=== PATIENT | female | born 1950 | race Caucasian/White ===

== ENCOUNTER → 2021-08-12 11:08 | Outpatient (BNVA) | payer MEDICARE, BC, SELFPAY | PROVIDERS: PCP Family Medicine; Visit Provider Internal Medicine Cardiovascular Disease | DX: I25.10 Atherosclerotic heart disease of native coronary artery without angina pectoris (principal); R94.31 Abnormal electrocardiogram [ECG] [EKG]; Z98.61 Coronary angioplasty status | CPT/HCPCS: 93005; 99212 ==

== ENCOUNTER → 2021-09-08 13:53 | Outpatient (BNVA) | payer MEDICARE, SELFPAY ==
[2021-08-28 13:57] VITALS: BP 118/72; BP 136/80; BMI 45.5
== END ==
PROVIDERS: PCP Family Medicine; Visit Provider Nurse Practitioner Family
DX: I25.10 Atherosclerotic heart disease of native coronary artery without angina pectoris (principal); R94.31 Abnormal electrocardiogram [ECG] [EKG]; R07.89 Other chest pain; I25.2 Old myocardial infarction; Z98.890 Other specified postprocedural states
CPT/HCPCS: 93005; 99212; Q3014

== ENCOUNTER → 2021-11-18 09:38 | Outpatient (BNVA) | payer MEDICARE, SELFPAY ==
[2021-08-28 13:57] VITALS: BP 118/72; BP 136/80
[2021-11-16 08:17] VITALS: BP 122/6; BMI 45.8
== END ==
PROVIDERS: PCP Family Medicine; Visit Provider Hospitalist
DX: R06.00 Dyspnea, unspecified (principal); G47.33 Obstructive sleep apnea (adult) (pediatric); I25.10 Atherosclerotic heart disease of native coronary artery without angina pectoris; R60.0 Localized edema
CPT/HCPCS: 99202

== ENCOUNTER → 2021-11-23 09:19 | Outpatient (BNVA) | payer MEDICARE, SELFPAY ==
[2021-08-28 13:57] VITALS: BP 118/72; BP 136/80
[2021-11-16 08:17] VITALS: BP 122/6; BMI 45.8
== END ==
PROVIDERS: PCP Family Medicine; Visit Provider Internal Medicine Cardiovascular Disease
DX: I25.10 Atherosclerotic heart disease of native coronary artery without angina pectoris (principal); R06.00 Dyspnea, unspecified; Z98.61 Coronary angioplasty status
CPT/HCPCS: 93005; 99212

== ENCOUNTER → 2021-12-03 10:48 | Outpatient (REF) | payer MEDICARE, SELFPAY ==
[2021-08-28 13:57] VITALS: BP 118/72; BP 136/80
[2021-11-16 08:17] VITALS: BP 122/6; BMI 45.8
== END ==
LOC: HO.SL 10:48
PROVIDERS: PCP Physician Assistant; Visit Provider Hospitalist
DX: G47.33 Obstructive sleep apnea (adult) (pediatric) (principal); R06.83 Snoring; R40.0 Somnolence
CPT/HCPCS: 95806

== ENCOUNTER → 2022-01-13 08:26 | Outpatient (BNVA) | payer MEDICARE, SELFPAY ==
[2021-08-28 13:57] VITALS: BP 118/72; BP 136/80
[2021-11-16 08:17] VITALS: BMI 45.8
[2021-12-31 11:11] VITALS: BP 118/64
== END ==
PROVIDERS: PCP Physician Assistant; Visit Provider Hospitalist
DX: J44.9 Chronic obstructive pulmonary disease, unspecified (principal); R06.02 Shortness of breath; G47.33 Obstructive sleep apnea (adult) (pediatric); R60.0 Localized edema; I25.10 Atherosclerotic heart disease of native coronary artery without angina pectoris; Z87.891 Personal history of nicotine dependence; Z98.890 Other specified postprocedural states
CPT/HCPCS: 99212

== ENCOUNTER → 2022-02-11 08:25 | Outpatient (BNVA) | payer MEDICARE, SELFPAY ==
[2021-11-16 08:17] VITALS: BMI 45.8
[2022-02-11 08:58] VITALS: BP 124/68; BP 126/62
== END ==
PROVIDERS: PCP Physician Assistant; Visit Provider Internal Medicine Endocrinology, Diabetes & Metabolism
DX: E03.9 Hypothyroidism, unspecified (principal); Z79.899 Other long term (current) drug therapy
CPT/HCPCS: 36415; 84439; 84443; 99202

== ENCOUNTER 2022-02-11 09:11 | Outpatient (REF) | payer MEDICARE, SELFPAY ==
[2021-11-16 08:17] VITALS: BMI 45.8
[2022-02-11 08:58] VITALS: BP 124/68; BP 126/62
[2022-02-11 11:21] LABS: Thyroid Stimulating Hormone 1.11 uIU/mL (0.32-4.0)
[2022-02-11 13:05] LABS: Free T4 (Free Thyroxine) 1.26 ng/dL (0.71-1.85)
== END 2022-02-11 09:12 | disposition home or self-care (01) ==
LOC: HO.10HDL 09:11
PROVIDERS: Visit Provider Internal Medicine Endocrinology, Diabetes & Metabolism
DX: Z13.89 Encounter for screening for other disorder (principal)
CPT/HCPCS: 36415; 84439; 84443

== ENCOUNTER → 2022-03-25 08:47 | Outpatient (BNVA) | payer MEDICARE, SELFPAY ==
[2021-11-16 08:17] VITALS: BMI 45.8
== END ==
PROVIDERS: PCP Physician Assistant; Visit Provider Internal Medicine Cardiovascular Disease
DX: E66.01 Morbid (severe) obesity due to excess calories (principal); I20.8 Other forms of angina pectoris; Z98.61 Coronary angioplasty status; Z68.42 Body mass index [BMI] 45.0-49.9, adult
CPT/HCPCS: 99212

== ENCOUNTER 2022-05-11 07:47 | Outpatient (REF) | payer MEDICARE, SELFPAY ==
[2021-11-16 08:17] VITALS: BMI 45.8
--- NOTE | 2022-05-11 18:12 | PFT_ITS ---
INDICATION: Shortness of breath. SPIROMETRY: FEV1 to FVC of 73% post bronchodilator, and 68% pre bronchodilator with an FEV1 of 1.73 L, which is 71% predicted and FVC of 2.36 L which is 73% predicted. The patient does have significant small airway disease with a FEF 25/75 of 52% predicted pre bronchodilators. Post bronchodilators, the patient did have . The maximum voluntary ventilation is 81% predicted. LUNG VOLUMES: Total lung capacity 86% predicted. DIFFUSION CAPACITY: DLCO 50% predicted. COMPARISON: None. INTERPRETATION: There appears to be a reversible obstructive ventilatory defect suspicious for diagnosis of asthma. The patient does have evidence of small airway disease which is consistent with diagnosis of asthma. The maximum voluntary ventilation is low normal. The patient's total lung capacity is within normal limits, although the patient does have a moderate diffusion impairment. Therefore, pulmonary vascular congestion and/or parenchymal lung condition should be considered. Should also correct for hemoglobin. Clinical correlation warranted. MD TANK Babb/GIL / [id number]
== END 2022-05-11 07:48 | disposition home or self-care (01) ==
LOC: HO.RESP 07:47
PROVIDERS: PCP Family Medicine; Visit Provider Hospitalist
DX: J44.9 Chronic obstructive pulmonary disease, unspecified (principal)
CPT/HCPCS: 94060; 94727; 94729

== ENCOUNTER → 2022-05-19 08:26 | Outpatient (BNVA) | payer MEDICARE, SELFPAY ==
[2021-11-16 08:17] VITALS: BMI 45.8
== END ==
PROVIDERS: PCP Family Medicine; Visit Provider Hospitalist
DX: J44.9 Chronic obstructive pulmonary disease, unspecified (principal); J98.6 Disorders of diaphragm; I21.3 ST elevation (STEMI) myocardial infarction of unspecified site; Z98.61 Coronary angioplasty status; Z98.890 Other specified postprocedural states
CPT/HCPCS: 99212

== ENCOUNTER → 2022-08-04 09:15 | Outpatient (BNVA) | payer MEDICARE, SELFPAY ==
[2021-11-16 08:17] VITALS: BMI 45.8
== END ==
PROVIDERS: PCP Family Medicine; Visit Provider Internal Medicine Cardiovascular Disease
DX: I25.118 Atherosclerotic heart disease of native coronary artery with other forms of angina pectoris (principal)
CPT/HCPCS: 93005; 99212

== ENCOUNTER → 2022-09-10 08:16 | Outpatient (BNVA) | payer MEDICARE, SELFPAY ==
[2021-11-16 08:17] VITALS: BMI 45.8
== END ==
PROVIDERS: PCP Family Medicine; Visit Provider Internal Medicine Endocrinology, Diabetes & Metabolism
DX: E03.9 Hypothyroidism, unspecified (principal)
CPT/HCPCS: 99212

== ENCOUNTER 2023-04-01 09:39 | Outpatient (REF) | payer MEDICARE, SELFPAY ==
[2021-11-16 08:17] VITALS: BMI 45.8
--- NOTE | ~2023-04-01 | MM_ITS ---
EXAMINATION: MM SCREENING DIGITAL BREAST TOMOSYNTHESIS, BILATERAL CLINICAL INFORMATION: Screening. Asymptomatic. COMPARISON: Mammography: There are no prior mammograms for comparison. TECHNIQUE: Digital breast tomosynthesis is performed in both the craniocaudal and mediolateral oblique views along with computer-aided detection (CAD). Synthesized 2D images are generated from the tomosynthesis. FINDINGS: The breasts are almost entirely fatty (ACR BI-RADS breast composition Category a). There are no significant masses, abnormal calcifications, or other abnormalities. MM/MM tomosynthesis screening BI IMPRESSION: No mammographic evidence of malignancy. ASSESSMENT: BI-RADS BI-RADS 1 - Negative RECOMMENDATION: Routine annual mammography screening. 1 year F/U This examination should not preclude the clinical evaluation of a suspicious palpable abnormality. This patient's information was entered into a reminder system with a target due date for their next mammogram.
== END 2023-04-01 09:40 | disposition home or self-care (01) ==
LOC: HO.MAMMO 09:39
PROVIDERS: PCP Family Medicine; Visit Provider Physician Assistant
DX: Z12.31 Encounter for screening mammogram for malignant neoplasm of breast (principal)
CPT/HCPCS: 77063; 77067

== ENCOUNTER → 2023-04-01 10:00 | Outpatient (BNV) | payer MEDICARE, SELFPAY ==
[2021-11-16 08:17] VITALS: BMI 45.8
== END ==
PROVIDERS: PCP Family Medicine; Visit Provider Radiology Diagnostic Radiology
DX: Z12.31 Encounter for screening mammogram for malignant neoplasm of breast (principal)
CPT/HCPCS: 77063; 77067

== ENCOUNTER 2023-05-18 09:31 | Outpatient (AMB) | payer MEDICARE, SELFPAY ==
[2021-11-16 08:17] VITALS: BMI 45.8
--- NOTE | 2023-05-18 09:43 | A.OFFVIS_ITS ---
Intake Vital Signs 05/18/23 09:44 Height 5 ft 6 in Weight 283 lb 1.176 oz BMI 45.7 BP 104/62 Blood Pressure Location Lt brachial Position Sitting Pulse 56 Pulse Source Pulse Oximeter Intake Visit Reasons: overdue for fu (rs) Intake Note: pt its here for and overdue f/up/ pt its doing fine. Durable Medical Equipment Repairer Required: No Accompanied by: Self / Same As Patient Allergies No Known Allergies Allergy (Verified 09/10/22 08:22) Medication List - Last Reconciled 05/18/23 by Otis Ramirez MD albuterol sulfate 90 mcg/actuation 2 inhalations inhalation Q6H PRN 30 days amitriptyline 25 mg PO DAILY aspirin 81 mg PO DAILY atenolol 25 mg PO DAILY 90 days atorvastatin 80 mg PO BEDTIME clopidogrel 75 mg PO DAILY fluoxetine 10 mg PO DAILY gabapentin 600 mg PO BID levothyroxine 175 mcg PO 6XW lisinopril 2.5 mg PO BEDTIME oxybutynin chloride ER 5 mg PO DAILY HPI HPI Comments History of Present Illness Details 73-year-old female who is here for [facility] w[facility]up. She has known history of coronary disease and presented with inferior wall NE when she underwent RCA PCI followed by staged PCI of left circumflex artery during the same hospitalization. Subsequent to that she was seen in the office and had anterior T-wave inversions and was taken back to cardiac laborer and had LAD PCI. Since then she has not had any further chest discomfort. She has fatigue and shortness of breath. Her symptoms did not improve with diuretics. She has morbid obesity we discussed previously about exercise and weight loss. She has a gym at home and is trying to exercise as much as she can. Compared to February she had lost 1 lb. She looked into weight loss program at [facility] but she was told that they do not have any nutritional program anymore and only surgical options are available here. She is saying that she gets fatigued easily. She is seeing pulmonology and has been diagnosed with mild COPD. 05/18/23: Today she returns for follow-up . She has been doing well. Denying any chest discomfort shortness of breath. She is saying she is trying to be more active and has no exertional issues. No bleeding concerns. Taking medications regularly. [facility] Medical History (Updated 05/19/22 @ 21:11 by Ayad Carlton MD) History of ST elevation myocardial infarction (STEMI) Hypothyroid COPD (chronic obstructive pulmonary disease) Lower extremity edema Surgical History History of cholecystectomy History of right knee surgery History of cardiac catheterization Family History Father Hypertension Mother No problems noted. Maternal Grandmother Pacemaker Paternal Grandmother Myocardial infarction Social History Household Members: Spouse Household Members Other:: Dipak, Alcohol intake: never Patient Tobacco Use Status: Former Tobacco user Quit Date: 40 yrs ago Review of Systems Const Denies chills, Denies fatigue, Denies fever(s), Denies frequent falls, Denies weakness, Denies weight gain and Denies weight loss ENT Denies dizziness Card Denies chest pain, Denies leg edema, Denies lightheadedness, Denies palpitations, Denies dyspnea and Denies dyspnea on exertion Resp Denies cough, Denies dyspnea and Denies dyspnea on exertion GI Denies hematochezia Musc Denies abnormal gait, Denies muscle weakness, Denies numbness, Denies radiating pain into limb and Denies tingling Neuro Denies abnormal gait, Denies dizziness, Denies frequent falls, Denies numbness, Denies tingling and Denies weakness Endo Denies fatigue and Denies palpitations Physical Exam Vital Signs: Last Vital Signs Pulse 56 05/18/23 09:44 BP 104/62 05/18/23 09:44 BMI result Body Mass Index 45.7 GENERAL APPEARANCE: in no acute distress, pleasant. NECK: no carotid bruit, no jugular venous distention. SKIN: no suspicious lesions, warm and dry. HEART: no murmurs, regular rate and rhythm. LUNGS: clear to auscultation bilaterally. ABDOMEN: soft, nontender. EXTREMITIES: no edema. PERIPHERAL PULSES: equal. NEUROLOGIC: No gross deficits, AAO X 3 Assessment & Plan Assessment & Plan (1) CAD (coronary artery disease): Comment: (s/p RAFAEL to RCA, LCx and LAD in 2021) Code(s): I25.10 - Atherosclerotic heart disease of [place] coronary artery without angina pectoris (2) Stable angina: Code(s): I20.8 - Other forms of angina pectoris Plan [age] female with known history of coronary disease with multivessel PCI who has stable angina currently. Doing well on the current medications. Blood pressure well controlled. She is asking about duration of her cardiovascular medications. She is on atenolol and lisinopril for blood pressure control. She is on aspirin, Plavix and atorvastatin. I have advised her that these are long-term medications for her. Given multivessel disease I would favor leaving her on aspirin and Plavix . If there is any concern for bruising or bleeding then aspirin can be stopped and she can stay on Plavix monotherapy. Currently she has decided to take both aspirin and Plavix. Thank you for allowing me to participate in the care of your patient. Please feel free to contact me if you have any questions. Coding Level of Care Code Est Pt Level 4 (30194) Diagnoses CAD (coronary artery disease) I25.10 Stable angina I20.8
[2023-05-18 09:44] VITALS: BP 104/62; PULSE 56; BMI 45.7
== END 2023-05-18 10:13 | disposition home or self-care (01) ==
PROVIDERS: PCP Family Medicine; Visit Provider Internal Medicine Cardiovascular Disease
DX: I25.118 Atherosclerotic heart disease of native coronary artery with other forms of angina pectoris (principal)
CPT/HCPCS: 99214

== ENCOUNTER → 2023-05-18 09:31 | Outpatient (BNVA) | payer MEDICARE, SELFPAY ==
[2021-11-16 08:17] VITALS: BMI 45.8
== END ==
PROVIDERS: PCP Family Medicine; Visit Provider Internal Medicine Cardiovascular Disease
DX: I25.119 Atherosclerotic heart disease of native coronary artery with unspecified angina pectoris (principal)
CPT/HCPCS: 99212

== ENCOUNTER 2023-07-12 08:20 | Outpatient (AMB) | payer MEDICARE, SELFPAY ==
[2021-11-16 08:17] VITALS: BMI 45.8
[2023-07-12 08:25] VITALS: PULSE 71; O2SAT 96; BMI 45.5
--- NOTE | 2023-07-12 08:25 | MHC.OFFVIS ---
Vital Signs 07/12/23 08:25 Height 5 ft 6 in Weight 282 lb BMI 45.5 Pulse 71 Pulse Source Pulse Oximeter Pulse Oximetry (%) 96 Oxygen Delivery Method Room Air Intake Visit Reasons: Shortness of breath Laboratory Monitor Required: No Allergies No Known Allergies Allergy (Verified 07/12/23 08:26) HPI Comments Details: The patient is [id number] female with known history of CAD, STEMI at [facility] in July 2021 when she presented with inferior ST-elevation FL. she was taken for cardiac catheterization emergently s/p PCI. the patient is presenting with progressive dyspnea on exertion. During the hospitalization her bring x-ray peptide was indeed elevated and her echocardiogram demonstrated an EF slightly decreased at 45 to 50%. The patient was placed on cardioprotective medications and was discharged. Currently she is performing cardiac rehab. However she has not seen any significant improvement of her respiratory capacity. Therefore she did go for a pulmonary evaluation. 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 Denies any significant issues while exposed to the flour. She was evaluated at [facility] when she did undergo pulmonary function studies. She was told she had obstructive lung disease and was provided inhaler. Although the inhaler cause significant coughing. Therefore she stopped it. She did not see any benefit. Denies any other exposures. The patient is having daytime drowsiness. Her Burton score is elevated 12/24. She is obese. Patient also has significant lower extremity edema. She has never had a sleep study. At this time with cardiovascular risk factors and her ongoing daytime drowsiness she needs to have a sleep study done. I will request a home sleep study at this time. In the meantime diuresis may be affected specially with her elevated brain atretic peptide. On examination she does not have any significant wheezing or any evidence of any prolonged expiratory phase which is reassuring. During a brief walking oximetry the patient did demonstrate increasing dyspnea when heart rate increased above 100. Pulse ox was stable throughout the ambulation. 01/13/2022 the patient is here for a pulmonary follow-up visit. Overall she continues to be about the same. Complains of the dyspnea on exertion moderate severity. She has been on the cardioprotective medications and also been working on weight loss. She has not been dramatic improvement respiratory issues. She tried multiple inhalers in the past however they resulted in adverse symptoms. She did also have issues with snoring and also daytime drowsiness. She did have a sleep study demonstrating she does not have any significant evidence of sleep apnea. However, with her snoring she can always consider a mandibular device to minimize snoring. The patient also had pulmonary function studies relatively recent at [facility]. I do not have them initially but I did get access to them. It appears that she does have mild degree of COPD. therefore, will refer her to pulmonary rehabilitation in order for her to strengthen and buildup her respiratory capacity. 05/19/2022 the patient is here for a pulmonary follow-up visit. Since we last spoke she has been doing fairly well. She did follow-up with cardiology and she was reassured with her results. She understands that she needs to lose weight because this is causing her to have worsening respiratory symptoms. She has already lost 9 lb and she is very courage. In addition to that she did not picking tech the Symbicort because it was too expensive. Therefore she does not have any inhalers at this time. We did review her pulmonary function studies that she had recently. 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 The patient will benefit from being on nebulizers that she has a great response to bronchodilators noted. We also reviewed her diffusing capacity which is moderately decreased. Her last chest x-ray was at [facility] where demonstrated elevations of the right hemidiaphragm. Therefore, will have her repeat the chest x-ray at some point. She can have it done whenever able. Will follow-up in a year's time. If a patient has any difficulties she is to call the office for an earlier assessment. 07/12/2023 the patient is here for a pulmonary follow-up visit. Overall the patient is doing okay. She has been having worsening dyspnea on exertion. He has been noticing that she is using her rescue inhaler a couple times a day. The patient wondering about using a maintenance inhaler. I had send her Symbicort the hospitalist too expensive. Will go ahead and try some Advair this time. It is too expensive will try to find a reasonable alternative including AirDuo with GoodRx card. The patient has been sleeping elevated has been helping her cough. In addition to the we did talk about pulmonary rehabilitation. She has not interested in doing in person right now. She is going to start working outside in again I gave her the online web site for pulmonary wellness in order for her to start looking at their videos information. The patient has not had chest x-ray recently. She does have an elevated hemidiaphragms we want to make sure follow-up with that. She can have that done prior to the next visit. If patient develops any worsening symptoms she will call for an earlier assessment otherwise follow-up in 6-8 months. [facility] Medical History (Updated 07/12/23 @ 08:29 by Ayad Carlton MD) History of ST elevation myocardial infarction (STEMI) Hypothyroid COPD (chronic obstructive pulmonary disease) Lower extremity edema Surgical History History of cholecystectomy History of right knee surgery History of cardiac catheterization Family History Father Hypertension Mother No problems noted. Maternal Grandmother Pacemaker Paternal Grandmother Myocardial infarction Social History Household Members: Spouse Household Members Other:: Dipak, Alcohol intake: never Patient Tobacco Use Status: Former Tobacco user Quit Date: 40 yrs ago Review of Systems Const Reports daytime sleepiness, Reports snoring, Denies weakness and Reports weight gain Eyes Denies change in vision ENT Denies dizziness Card Denies chest pain, Denies chest pain with activity, Denies syncope, Denies rapid heart rate, Denies pedal edema, Denies edema, Denies leg edema, Denies lightheadedness, Denies palpitations, Denies dyspnea, Reports dyspnea on exertion and Denies orthopnea Resp Denies cough, Denies dyspnea, Reports dyspnea on exertion and Reports snoring GI Denies hematochezia and Denies change in stool character Musc Denies abnormal gait, Denies muscle weakness, Denies numbness, Denies radiating pain into limb and Denies tingling Neuro Denies abnormal gait, Denies dizziness, Denies syncope, Denies numbness, Denies tingling and Denies weakness Endo Denies palpitations Physical Exam Vital Signs: Last Vital Signs Pulse 71 07/12/23 08:25 Pulse Ox 96 07/12/23 08:25 Oxygen Delivery Method Room Air 07/12/23 08:25 BMI result Body Mass Index 45.5 Const General: cooperative, comfortable and no acute distress Orientation/consciousness: patient oriented x3 Neck Neck: Yes normal visual inspection Chest Chest palpation & inspection: normal inspection of the chest Resp Effort & Inspection: normal respiratory effort Auscultation: no crackles, no rales, no rhonchi, no wheezes and diminished lung sounds Cardio Rate: regular rate Rhythm: regular rhythm Heart sounds: S1 normal heart sound present, S2 normal heart sound present, no gallops, no murmurs and no rubs GI Inspection: Yes normal to inspection Neuro General: patient oriented x3 Extrem Other: Right radial catheterization site with easily palpable right radial pulse and hand assessment normal General: No calf tenderness, No clubbing, No cyanosis and Yes edema Psych Appearance: grossly normal Mental Status: mental status grossly normal Speech and movement: Normal speech and movement present Assessment & Plan Assessment & Plan (1) Dyspnea: Code(s): R06.00 - Dyspnea, unspecified Category: Medical Qualifiers: Dyspnea type: dyspnea on exertion Qualified Code(s): R06.09 - Other forms of dyspnea (2) CAD (coronary artery disease): Comment: (s/p RAFAEL to RCA, LCx and LAD in 2021) Code(s): I25.10 - Atherosclerotic heart disease of [place] coronary artery without angina pectoris Category: Medical (3) COPD (chronic obstructive pulmonary disease): Comment: Partially reversible obstruction, asthma-copd overlap syndrome Code(s): J44.9 - Chronic obstructive pulmonary disease, unspecified Category: Medical Qualifiers: COPD type: unspecified COPD Qualified Code(s): J44.9 - Chronic obstructive pulmonary disease, unspecified (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 Consider in person low sodium diet weight management CXR F/U 6-8 months Orders: Orders XR chest 2V Today J44.9 - Chronic obstructive pulmonary disease, unspecified Pneumococcal 20 Immunization Today Z23 - Encounter for immunization Medications: New fluticasone propion-salmeterol 115-21 mcg/actuation (Advair HFA) 2 puffs inhalation Q12H 12 grams 11RF 30 days Coding Level of Care Code Est Pt Level 4 (23780) Diagnoses Dyspnea on exertion R06.09 Dyspnea type: dyspnea on exertion CAD (coronary artery disease) I25.10 Chronic obstructive pulmonary disease, unspecified COPD type J44.9 COPD type: unspecified COPD Elevated diaphragm J98.6 Time Spent (min) 17
== END 2023-07-12 08:46 | disposition home or self-care (01) ==
PROVIDERS: PCP Family Medicine; Visit Provider Hospitalist
DX: R06.09 Other forms of dyspnea (principal); I25.10 Atherosclerotic heart disease of native coronary artery without angina pectoris; J44.9 Chronic obstructive pulmonary disease, unspecified; J98.6 Disorders of diaphragm; Z23 Encounter for immunization
CPT/HCPCS: 99214

== ENCOUNTER → 2023-07-12 08:20 | Outpatient (BNVA) | payer MEDICARE, SELFPAY ==
[2021-11-16 08:17] VITALS: BMI 45.8
== END ==
PROVIDERS: PCP Family Medicine; Visit Provider Hospitalist
DX: R06.09 Other forms of dyspnea (principal); J44.9 Chronic obstructive pulmonary disease, unspecified; J98.6 Disorders of diaphragm; I25.10 Atherosclerotic heart disease of native coronary artery without angina pectoris; Z23 Encounter for immunization
CPT/HCPCS: 90471; 90677; 99212

== ENCOUNTER 2023-11-21 09:41 | Outpatient (AMB) | payer MEDICARE, SELFPAY ==
[2021-11-16 08:17] VITALS: BMI 45.8
[2023-11-21 09:45] VITALS: BP 120/62; PULSE 67; BMI 44.3
--- NOTE | 2023-11-21 09:45 | A.OFFVIS_ITS ---
Vital Signs 11/21/23 09:45 Height 5 ft 6 in Weight 274 lb 11.135 oz BMI 44.3 BP 120/62 Blood Pressure Location Lt brachial Position Sitting Pulse 67 Pulse Source Monitor Intake Visit Reasons: 6 mth f/up Intake Note: 6 mth f/up Clinic Mgr Required: No Accompanied by: Self / Same As Patient Allergies No Known Allergies Allergy (Verified 07/12/23 08:26) Medication List - Last Reconciled 11/21/23 by Otis Ramirez MD albuterol sulfate 90 mcg/actuation 2 inhalations inhalation Q6H PRN 30 days amitriptyline 25 mg PO DAILY aspirin 81 mg PO DAILY atenolol 25 mg PO DAILY 90 days atorvastatin 80 mg PO BEDTIME clopidogrel 75 mg PO DAILY fluoxetine 10 mg PO DAILY fluticasone propion-salmeterol 115-21 mcg/actuation (Advair HFA) 2 puffs inhalation Q12H 30 days gabapentin 600 mg PO BID levothyroxine 175 mcg PO 6XW lisinopril 2.5 mg PO BEDTIME oxybutynin chloride ER 5 mg PO DAILY HPI Comments Details: 73-year-old female who is here for follow-up. She has known history of coronary disease and presented with inferior wall SC when she underwent RCA PCI followed by staged PCI of left circumflex artery during the same hospitalization. Subsequent to that she was seen in the office and had anterior T-wave inversions and was taken back to cardiac bean sprout laborer and had LAD PCI. Since then she has not had any further chest discomfort. She has fatigue and shortness of breath. Her symptoms did not improve with diuretics. She has morbid obesity we discussed previously about exercise and weight loss. She has a gym at home and is trying to exercise as much as she can. Compared to February she had lost 1 lb. She looked into weight loss program at [facility] but she was told that they do not have any nutritional program anymore and only surgical options are available here. She is saying that she gets fatigued easily. She is seeing pulmonology and has been diagnosed with mild COPD. 05/18/23: Today she returns for follow-up. She has been doing well. Denying any chest discomfort shortness of breath. She is saying she is trying to be more active and has no exertional issues. No bleeding concerns. Taking medications regularly. 11/21/2023: She is here for follow-up. No chest discomfort shortness of breath. Taking medications regularly. She had episode of rectal bleeding and had colonoscopy performed which did not show any significant issues. She was told maybe bleeding was due to hemorrhoids. She is on aspirin and Plavix due to multiple stents done in 2021. [facility] Medical History (Updated 07/12/23 @ 08:29 by Ayad Carlton MD) History of ST elevation myocardial infarction (STEMI) Hypothyroid COPD (chronic obstructive pulmonary disease) Lower extremity edema Surgical History History of cholecystectomy History of right knee surgery History of cardiac catheterization Family History Father Hypertension Mother No problems noted. Maternal Grandmother Pacemaker Paternal Grandmother Myocardial infarction Social History Household Members: Spouse Household Members Other:: Dipak, Alcohol intake: never Patient Tobacco Use Status: Former Tobacco user Review of Systems Const Denies chills, Denies fatigue, Denies fever(s), Denies frequent falls, Denies weakness, Denies weight gain and Denies weight loss ENT Denies dizziness Card Denies chest pain, Denies leg edema, Denies lightheadedness, Denies palpitations, Denies dyspnea and Denies dyspnea on exertion Resp Denies cough, Denies dyspnea and Denies dyspnea on exertion GI Denies hematochezia Musc Denies abnormal gait, Denies muscle weakness, Denies numbness, Denies radiating pain into limb and Denies tingling Neuro Denies abnormal gait, Denies dizziness, Denies frequent falls, Denies numbness, Denies tingling and Denies weakness Endo Denies fatigue and Denies palpitations Physical Exam Vital Signs: Last Vital Signs Pulse 67 11/21/23 09:45 BP 120/62 11/21/23 09:45 BMI result Body Mass Index 44.3 GENERAL APPEARANCE: in no acute distress, pleasant. NECK: no carotid bruit, no jugular venous distention. SKIN: no suspicious lesions, warm and dry. HEART: no murmurs, regular rate and rhythm. LUNGS: clear to auscultation bilaterally. ABDOMEN: soft, nontender. EXTREMITIES: no edema. PERIPHERAL PULSES: equal. NEUROLOGIC: No gross deficits, AAO X 3 Office Procedures EKG Details: Sinus rhythm 67 beats per minute, normal axis, low voltage, QTC 424 milliseconds. [id number], Complete Assessment & Plan Assessment & Plan (1) Stable angina: Code(s): I20.8 - Other forms of angina pectoris Category: Medical (2) CAD (coronary artery disease): Comment: (s/p RAFAEL to RCA, LCx and LAD in 2021) Code(s): I25.10 - Atherosclerotic heart disease of [place] coronary artery without angina pectoris Category: Medical Plan Pleasant 73 year female here for follow-up. She has history of coronary disease with multivessel PCI in the past. She has stable angina currently and has been doing well. Blood pressure is well controlled. She had episode of rectal bleeding which was thought to be due to hemorrhoids. She is on dual antiplatelet therapy and PCI was in 2021. I have advised her to stop the aspirin and continue Plavix monotherapy from here onwards. She is on atorvastatin 80 mg. We will do fasting lipid panel on her and adjust medications if LDL cholesterol is more than 70. Same medications otherwise with the exception of aspirin. Thank you for allowing me to participate in the care of your patient. Please feel free to contact me if you have any questions. Orders: Orders Lipid Panel Today I25.10 - Atherosclerotic heart disease of [place] coronary artery without angina pectoris Medications: Discontinued aspirin Discontinued Reason: Doctor's Order 81 mg PO DAILY 90 tabs 3RF Coding Level of Care Code Est Pt Level 4 (84470) Diagnoses Stable angina I20.8 CAD (coronary artery disease) I25.10 CPT Codes EKG - CPT: 71299-[id number], Complete ([id number])
== END 2023-11-21 10:08 | disposition home or self-care (01) ==
PROVIDERS: PCP Family Medicine; Visit Provider Internal Medicine Cardiovascular Disease
DX: I25.118 Atherosclerotic heart disease of native coronary artery with other forms of angina pectoris (principal)
CPT/HCPCS: 93010; 99214

== ENCOUNTER → 2023-11-21 09:41 | Outpatient (BNVA) | payer MEDICARE, SELFPAY ==
[2021-11-16 08:17] VITALS: BMI 45.8
== END ==
PROVIDERS: PCP Family Medicine; Visit Provider Internal Medicine Cardiovascular Disease
DX: I25.118 Atherosclerotic heart disease of native coronary artery with other forms of angina pectoris (principal)
CPT/HCPCS: 93005; 99212

== ENCOUNTER 2024-01-16 08:17 | Outpatient (AMB) | payer MEDICARE, SELFPAY ==
[2021-11-16 08:17] VITALS: BMI 45.8
--- NOTE | 2024-01-16 08:20 | A.OFFVIS_ITS ---
Vital Signs 01/16/24 08:23 Height 5 ft 6 in Weight 264 lb 8.875 oz BMI 42.7 BP 124/80 Blood Pressure Location Rt brachial Position Sitting Pulse 69 Pulse Source Pulse Oximeter Pulse Oximetry (%) 100 Oxygen Delivery Method Room Air Intake Visit Reasons: Shortness of breath Certified Orthotist Required: No Drafter Tool Design: Drafter Tool Design offered & declined Accompanied by: Self / Same As Patient Allergies No Known Allergies Allergy (Verified 01/16/24 08:26) Medication List - Last Reconciled 01/16/24 by Arelis Gusman LPN albuterol sulfate 90 mcg/actuation 2 inhalations inhalation Q6H PRN 30 days amitriptyline 25 mg PO DAILY atenolol 25 mg PO DAILY 90 days atorvastatin 80 mg PO BEDTIME clopidogrel 75 mg PO DAILY fluoxetine 10 mg PO DAILY fluticasone propion-salmeterol 115-21 mcg/actuation (Advair HFA) 2 puffs inhalation Q12H 30 days gabapentin 600 mg PO BID levothyroxine 175 mcg PO 6XW lisinopril 2.5 mg PO BEDTIME oxybutynin chloride ER 5 mg PO DAILY HPI Comments Details: The patient is [id number] female with known history of CAD, STEMI at [facility] in July 2021 when she presented with inferior ST-elevation LA. she was taken for cardiac catheterization emergently s/p PCI. the patient is presenting with progressive dyspnea on exertion. During the hospitalization her bring x-ray peptide was indeed elevated and her echocardiogram demonstrated an EF slightly decreased at 45 to 50%. The patient was placed on cardioprotective medications and was discharged. Currently she is performing cardiac rehab. However she has not seen any significant improvement of her respiratory capacity. Therefore she did go for a pulmonary evaluation. 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 Denies any significant issues while exposed to the flour. She was evaluated at [facility] when she did undergo pulmonary function studies. She was told she had obstructive lung disease and was provided inhaler. Although the inhaler cause significant coughing. Therefore she stopped it. She did not see any benefit. Denies any other exposures. The patient is having daytime drowsiness. Her [place] score is elevated 02/27. She is obese. Patient also has significant lower extremity edema. She has never had a sleep study. At this time with cardiovascular risk factors and her ongoing daytime drowsiness she needs to have a sleep study done. I will request a home sleep study at this time. In the meantime diuresis may be affected specially with her elevated brain atretic peptide. On examination she does not have any significant wheezing or any evidence of any prolonged expiratory phase which is reassuring. During a brief walking oximetry the patient did demonstrate increasing dyspnea when heart rate increased above 100. Pulse ox was stable throughout the ambulation. 01/13/2022 the patient is here for a pulmonary follow-up visit. Overall she continues to be about the same. Complains of the dyspnea on exertion moderate severity. She has been on the cardioprotective medications and also been working on weight loss. She has not been dramatic improvement respiratory issues. She tried multiple inhalers in the past however they resulted in adverse symptoms. She did also have issues with snoring and also daytime drowsiness. She did have a sleep study demonstrating she does not have any significant evidence of sleep apnea. However, with her snoring she can always consider a mandibular device to minimize snoring. The patient also had pulmonary function studies relatively recent at [facility]. I do not have them initially but I did get access to them. It appears that she does have mild degree of COPD. therefore, will refer her to pulmonary rehabilitation in order for her to strengthen and buildup her respiratory capacity. 05/19/2022 the patient is here for a pulmonary follow-up visit. Since we last spoke she has been doing fairly well. She did follow-up with cardiology and she was reassured with her results. She understands that she needs to lose weight because this is causing her to have worsening respiratory symptoms. She has already lost 9 lb and she is very courage. 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 Therefore she does not have any inhalers at this time. We did review her pulmonary function studies that she had recently. 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 The patient will benefit from being on nebulizers that she has a great response to bronchodilators noted. We also reviewed her diffusing capacity which is moderately decreased. Her last chest x-ray was at [facility] where demonstrated elevations of the right hemidiaphragm. Therefore, will have her repeat the chest x-ray at some point. She can have it done whenever able. Will follow-up in a year's time. If a patient has any difficulties she is to call the office for an earlier assessment. 07/12/2023 the patient is here for a pulmonary follow-up visit. Overall the patient is doing okay. She has been having worsening dyspnea on exertion. He has been noticing that she is using her rescue inhaler a couple times a day. The patient wondering about using a maintenance inhaler. I had send her Symbicort the hospitalist too expensive. Will go ahead and try some Advair this time. It is too expensive will try to find a reasonable alternative including AirDuo with GoodRx card. The patient has been sleeping elevated has been helping her cough. In addition to the we did talk about pulmonary rehabilitation. She has not interested in doing in person right now. She is going to start working outside in again I gave her the online web site for pulmonary wellness in order for her to start looking at their videos information. The patient has not had chest x-ray recently. She does have an elevated hemidiaphragms we want to make sure follow-up with that. She can have that done prior to the next visit. If patient develops any worsening symptoms she will call for an earlier assessment otherwise follow-up in 6-8 months. 01/16/2024 the patient is here for a pulmonary follow-up visit. The patient overall has been doing very well. She has been using her rescue inhaler on a daily basis. She did not get the Advair HFA. She does use the rescue inhaler once or twice a day with good effect. She is staying active exercising. She is also using a wedge pillow at nighttime which is also helping with micro aspirations. She did not get a chest x-ray. We did again review her pulmonary function studies demonstrated the obstructive physiology. She does benefit from a beta effect. Therefore I will prescribe Anoro to the pharmacy. I am not sure how financially reasonable with the inhaler will be but hopefully she can at least try for a month and see this is helpful. The patient will have an x-ray whenever she can. She will follow-up in a year's time. If she has any issues prior to that she will call for an earlier assessment. [facility]LY [facility] Medical History (Updated 07/12/23 @ 08:29 by Ayad Carlton MD) History of ST elevation myocardial infarction (STEMI) Hypothyroid COPD (chronic obstructive pulmonary disease) Lower extremity edema Surgical History History of cholecystectomy History of right knee surgery History of cardiac catheterization Family History Father Hypertension Mother No problems noted. Maternal Grandmother Pacemaker Paternal Grandmother Myocardial infarction Social History Household Members: Spouse Household Members Other:: Dipak, Alcohol intake: never Patient Tobacco Use Status: Former Tobacco user Review of Systems Const Reports daytime sleepiness, Reports snoring, Denies weakness and Reports weight gain Eyes Denies change in vision ENT Denies dizziness Card Denies chest pain, Denies chest pain with activity, Denies syncope, Denies rapid heart rate, Denies pedal edema, Denies edema, Denies leg edema, Denies lightheadedness, Denies palpitations, Denies dyspnea, Reports dyspnea on exertion and Denies orthopnea Resp Denies cough, Denies dyspnea, Reports dyspnea on exertion and Reports snoring GI Denies hematochezia and Denies change in stool character Musc Denies abnormal gait, Denies muscle weakness, Denies numbness, Denies radiating pain into limb and Denies tingling Neuro Denies abnormal gait, Denies dizziness, Denies syncope, Denies numbness, Denies tingling and Denies weakness Endo Denies palpitations Physical Exam Vital Signs: Last Vital Signs Pulse 69 01/16/24 08:23 BP 124/80 01/16/24 08:23 Pulse Ox 100 01/16/24 08:23 Oxygen Delivery Method Room Air 01/16/24 08:23 BMI result Body Mass Index 42.7 Const General: cooperative, comfortable and no acute distress Orientation/consciousness: patient oriented x3 Neck Neck: Yes normal visual inspection Chest Chest palpation & inspection: normal inspection of the chest Resp Effort & Inspection: normal respiratory effort Auscultation: clear to auscultation bilaterally, no crackles, no rales, no rhonchi and no wheezes Cardio Rate: regular rate Rhythm: regular rhythm Heart sounds: S1 normal heart sound present, S2 normal heart sound present, no gallops, no murmurs and no rubs GI Inspection: Yes normal to inspection Neuro General: patient oriented x3 Extrem Other: Right radial catheterization site with easily palpable right radial pulse and hand assessment normal General: No calf tenderness, No clubbing, No cyanosis and Yes edema Psych Appearance: grossly normal Mental Status: mental status grossly normal Speech and movement: Normal speech and movement present Assessment & Plan Assessment & Plan (1) Dyspnea: Code(s): R06.00 - Dyspnea, unspecified Category: Medical Qualifiers: Dyspnea type: dyspnea on exertion Qualified Code(s): R06.09 - Other forms of dyspnea (2) COPD (chronic obstructive pulmonary disease): Comment: Partially reversible obstruction, asthma-copd overlap syndrome Code(s): J44.9 - Chronic obstructive pulmonary disease, unspecified Category: Medical Qualifiers: COPD type: unspecified COPD Qualified Code(s): J44.9 - Chronic obstructive pulmonary disease, unspecified (3) 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 Consider in person low sodium diet weight management CXR F/U 8-12 months Orders: Orders XR chest 2V Today J44.9 - Chronic obstructive pulmonary disease, unspecified Medications: New umeclidinium-vilanterol 62.5-25 mcg/actuation (Anoro Ellipta) 1 inh inhalation DAILY 60 ea 11RF J44.89 - Other specified chronic obstructive pulmonary disease Discontinued fluticasone propion-salmeterol 115-21 mcg/actuation (Advair HFA) Discontinued Reason: Doctor's Order 2 puffs inhalation Q12H 30 days 12 grams 11RF Coding Level of Care Code Est Pt Level 4 (57013) Diagnoses Dyspnea on exertion R06.09 Dyspnea type: dyspnea on exertion Chronic obstructive pulmonary disease, unspecified COPD type J44.9 COPD type: unspecified COPD Elevated diaphragm J98.6 Time Spent (min) 16
[2024-01-16 08:23] VITALS: BP 124/80; PULSE 69; O2SAT 100; BMI 42.7
== END 2024-01-16 08:42 | disposition home or self-care (01) ==
PROVIDERS: PCP Family Medicine; Visit Provider Hospitalist
DX: R06.09 Other forms of dyspnea (principal); J44.9 Chronic obstructive pulmonary disease, unspecified; J98.6 Disorders of diaphragm
CPT/HCPCS: 99214

== ENCOUNTER → 2024-01-16 08:17 | Outpatient (BNVA) | payer MEDICARE, SELFPAY ==
[2021-11-16 08:17] VITALS: BMI 45.8
== END ==
PROVIDERS: PCP Family Medicine; Visit Provider Hospitalist
DX: R06.09 Other forms of dyspnea (principal); J44.9 Chronic obstructive pulmonary disease, unspecified; J98.6 Disorders of diaphragm; R60.0 Localized edema
CPT/HCPCS: 99212

== ENCOUNTER 2024-04-06 09:29 | Outpatient (REF) | payer MEDICARE, SELFPAY ==
[2021-11-16 08:17] VITALS: BMI 45.8
== END 2024-04-06 09:30 | disposition home or self-care (01) ==
LOC: HO.MAMMO 09:29
PROVIDERS: PCP Family Medicine; Visit Provider Family Medicine
DX: Z12.31 Encounter for screening mammogram for malignant neoplasm of breast (principal)
CPT/HCPCS: 77063; 77067

== ENCOUNTER → 2024-04-06 09:45 | Outpatient (BNV) | payer MEDICARE, SELFPAY ==
[2021-11-16 08:17] VITALS: BMI 45.8
== END ==
PROVIDERS: PCP Family Medicine; Visit Provider Internal Medicine
DX: Z12.31 Encounter for screening mammogram for malignant neoplasm of breast (principal)
CPT/HCPCS: 77063; 77067

== ENCOUNTER 2024-05-14 10:31 | Outpatient (AMB) | payer MEDICARE, SELFPAY ==
[2021-11-16 08:17] VITALS: BMI 45.8
--- NOTE | 2024-05-14 10:44 | A.OFFVIS_ITS ---
Vital Signs 05/14/24 10:46 Height 5 ft 6 in Weight 243 lb 6.245 oz BMI 39.3 BP 124/62 Blood Pressure Location Lt brachial Position Sitting Pulse 63 Pulse Source Pulse Oximeter Intake Visit Reasons: 6mth f/up Intake Note: 6 mth f/up Layout Operator Required: No Accompanied by: Self / Same As Patient Allergies No Known Allergies Allergy (Verified 01/16/24 08:26) Medication List - Last Reconciled 05/14/24 by Otis Ramirez MD albuterol sulfate 90 mcg/actuation 2 inhalations inhalation Q6H PRN 30 days amitriptyline 25 mg PO DAILY atenolol 25 mg PO DAILY 90 days atorvastatin 80 mg PO BEDTIME clopidogrel 75 mg PO DAILY gabapentin 600 mg PO BID levothyroxine 175 mcg PO 6XW lisinopril 2.5 mg PO BEDTIME tirzepatide 12.5 mg subcut QWEEK umeclidinium-vilanterol 62.5-25 mcg/actuation (Anoro Ellipta) 1 inh inhalation DAILY HPI Comments Details: 73-year-old female who is here for follow-up. She has known history of coronary disease and presented with inferior wall AZ when she underwent RCA PCI followed by staged PCI of left circumflex artery during the same hospitalization. Subsequent to that she was seen in the office and had anterior T-wave inversions and was taken back to cardiac labeler and had LAD PCI. Since then she has not had any further chest discomfort. She has fatigue and shortness of breath. Her symptoms did not improve with diuretics. She has morbid obesity we discussed previously about exercise and weight loss. She has a gym at home and is trying to exercise as much as she can. Compared to February she had lost 1 lb. She looked into weight loss program at [facility] but she was told that they do not have any nutritional program anymore and only surgical options are available here. She is saying that she gets fatigued easily. She is seeing pulmonology and has been diagnosed with mild COPD. 05/18/23: Today she returns for follow-up. She has been doing well. Denying any chest discomfort shortness of breath. She is saying she is trying to be more active and has no exertional issues. No bleeding concerns. Taking medications regularly. 11/21/2023: She is here for follow-up. No chest discomfort shortness of breath. Taking medications regularly. She had episode of rectal bleeding and had colonoscopy performed which did not show any significant issues. She was told maybe bleeding was due to hemorrhoids. She is on aspirin and Plavix due to multiple stents done in 2021. 05/14/2024: Doing well on follow-up. No chest discomfort shortness of breath. She is on Zepbound and has lost 40 lb. She is trying to walk more but has not been exercising regularly due to cold weather. FOR[facility]LY [facility] Medical History (Updated 07/12/23 @ 08:29 by Ayad Carlton MD) History of ST elevation myocardial infarction (STEMI) Hypothyroid COPD (chronic obstructive pulmonary disease) Lower extremity edema Surgical History History of cholecystectomy History of right knee surgery History of cardiac catheterization Family History Father Hypertension Mother No problems noted. Maternal Grandmother Pacemaker Paternal Grandmother Myocardial infarction Social History Household Members: Spouse Household Members Other:: Dipak, Alcohol intake: never Patient Tobacco Use Status: Former Tobacco user Review of Systems Const Denies chills, Denies fatigue, Denies fever(s), Denies frequent falls, Denies weakness, Denies weight gain and Denies weight loss ENT Denies dizziness Card Denies chest pain, Denies leg edema, Denies lightheadedness, Denies palpitations, Denies dyspnea and Denies dyspnea on exertion Resp Denies cough, Denies dyspnea and Denies dyspnea on exertion GI Denies hematochezia Musc Denies abnormal gait, Denies muscle weakness, Denies numbness, Denies radiating pain into limb and Denies tingling Neuro Denies abnormal gait, Denies dizziness, Denies frequent falls, Denies numbness, Denies tingling and Denies weakness Endo Denies fatigue and Denies palpitations Physical Exam Vital Signs: Last Vital Signs Pulse 63 05/14/24 10:46 BP 124/62 05/14/24 10:46 BMI result Body Mass Index 39.3 GENERAL APPEARANCE: in no acute distress, pleasant. NECK: no carotid bruit, no jugular venous distention. SKIN: no suspicious lesions, warm and dry. HEART: no murmurs, regular rate and rhythm. LUNGS: clear to auscultation bilaterally. ABDOMEN: soft, nontender. EXTREMITIES: no edema. PERIPHERAL PULSES: equal. NEUROLOGIC: No gross deficits, AAO X 3 Assessment & Plan Assessment & Plan (1) Stable angina: Code(s): I20.8 - Other forms of angina pectoris Category: Medical (2) CAD (coronary artery disease): Comment: (s/p RAFAEL to RCA, LCx and LAD in 2021) Code(s): I25.10 - Atherosclerotic heart disease of [place] coronary artery without angina pectoris Category: Medical Plan Pleasant 74 year female here for follow-up. She has history of coronary disease with multivessel PCI in the past. She has stable angina currently and has been doing well. Blood pressure is well controlled. She had episode of rectal bleeding which was thought to be due to hemorrhoids. She was changed to Plavix monotherapy after that and has been stable. Continue atorvastatin 80 mg daily. She has not had any LV assessment since 2021. We will arrange echocardiography. Overall clinically stable. Follow up with us in 6 months. Thank you for allowing me to participate in the care of your patient. Please feel free to contact me if you have any questions. Orders: Orders CA echo transthorac w con Today I25.10 - Atherosclerotic heart disease of [place] coronary artery without angina pectoris Coding Level of Care Code Est Pt Level 4 (53580) Diagnoses Stable angina I20.8 CAD (coronary artery disease) I25.10
[2024-05-14 10:46] VITALS: BP 124/62; PULSE 63; BMI 39.3
== END 2024-05-14 11:05 | disposition home or self-care (01) ==
PROVIDERS: PCP Family Medicine; Visit Provider Internal Medicine Cardiovascular Disease
DX: I25.118 Atherosclerotic heart disease of native coronary artery with other forms of angina pectoris (principal)
CPT/HCPCS: 99214

== ENCOUNTER → 2024-05-14 10:31 | Outpatient (BNVA) | payer MEDICARE, SELFPAY ==
[2021-11-16 08:17] VITALS: BMI 45.8
== END ==
PROVIDERS: PCP Family Medicine; Visit Provider Internal Medicine Cardiovascular Disease
DX: I25.118 Atherosclerotic heart disease of native coronary artery with other forms of angina pectoris (principal)
CPT/HCPCS: 99212

== ENCOUNTER → 2024-05-25 08:07 | Outpatient (REF) | payer MEDICARE, SELFPAY ==
[2021-11-16 08:17] VITALS: BMI 45.8
--- NOTE | 2024-05-25 08:09 | CA_ITS ---
Transthoracic Echocardiogram Patient (Last, First, Middle): Francine Zafar J Gender: Female Date of : 1950 Age: 74 Procedure Date: 05/25/2024 Procedure Type: Transthoracic Echocardiogram Location: OP Height: 167.64 cm Weight: 110.22 kg BSA: 2.17 m2 Heart Rate: 69 bpm BP: 124 / 62 mmHg Racquet Maker: SB Referring MD: Otis Ramirez MD Symptoms: I25.10 - Atherosclerotic heart disease of [place] coronary artery without... Study Quality: Adequate ECG Rhythm: Sinus Conclusions: - Normal left ventricular size and systolic function. The visually estimated ejection fraction is between 55-60%. - Elevated filling pressures. - Normal right ventricular cavity size and systolic function. Findings Left Ventricle Normal left ventricular size and systolic function. The visually estimated ejection fraction is between 55-60%. There is no evidence of regional wall motion abnormalities. Abnormal diastolic function is noted. Spectral Doppler is indicative of an impaired relaxation filling pattern. Elevated filling pressures. There is mild septal asymmetric hypertrophy. Right Ventricle Normal right ventricular cavity size and systolic function. Atria The left atrium is likely dilated. The right atrium is normal in size. Aortic Valve There is a normal trileaflet aortic valve. There is no aortic valve stenosis. There is no aortic valve regurgitation. Mitral Valve There is moderate mitral annular calcification. There is trace mitral valve regurgitation. There is no mitral valve stenosis. Pulmonic Valve The pulmonic valve is likely normal. There is trace pulmonic valve regurgitation. Tricuspid Valve Normal tricuspid valve structure. There is no tricuspid valve regurgitation. Tricuspid regurgitation envelope is inadequate for calculation of right ventricular systolic pressure. Normal right atrial pressure. Great Vessels All visible segments of the aorta are normal in size. The visualized portions of the pulmonary artery and branches are normal. Venous The inferior vena cava is normal in size and collapses greater than 50% with inspiration. Pericardium/Pleural There is no evidence of pericardial effusion. Prior Study Comparison No prior study available for comparison. Measurements 2D Linear Measurements IVSd: 1.27 0.6-0.9/0.6-1.0 cm LVIDd: 4.75 3.9-5.3/4.2-5.9 cm LVIDd Index: 2.19 2.4-3.2/2.2-3.1 cm/m2 LVIDs: 3.28 2.0-3.6 cm LVPWd: 0.82 0.7-1.1 cm LA Diam: 4.50 2.7-3.8/3.0-4.0 cm LAIDs Index: 2.07 1.5-2.3 cm/m2 LV Mass: 220.92 67-162/88-224 g LV Mass Index: 101.81 43-95/49-115 g/m2 LVOT Diam: 2.00 3.0+(-)1.3 cm 2D Systolic Function EF 4C: 56.40 >55% EF 2C: 67.70 >55% EF BiP: 62.80 >55% Mitral Valve MV Pk E: 1.19 MV PK A: 1.20 MV Decel Time: 271.00 E/A: 1.00 E'Lateral: 6.64 E'Medial: 4.57 E/E' Med: 26.00 E/E' Lat: 17.90 PHT: 79.00 MVA PHT: 2.78 Decel [place]: 4.40 Aortic Valve AoV Pk Luiz: 1.28 AoV Pk Grad: 7.00 BOBBI: 2.50 LVOT LVOT Pk Luiz: 1.01 LVOT Mn Luiz: 0.73 LVOT VTI: 0.24 LVOT Pk Grad: 4.00 LVOT Mn Grad: 2.00 LVOT Diam: 2.00 LVOT Area: 3.14 Diastolic Function MV Pk E: 1.19 MV Pk A: 1.20 E/A: 1.00 E'Medial: 4.57 E/E' Med: 26.00 E' Laterial: 6.64 E/E' Lat: 17.90 Right Ventricle TAPSE (mm): 27.20 TVS' Luiz: 14.90 Tricuspid Valve RA Press: 3.00 Great Vessels Aorta Sinus of Valsalva: 3.00 2.0-3.5 cm Ao Asc: 3.10 2.1-3.4 cm Ao Arch: 2.80 Pulmonary Valve PV Pk Luiz: 1.03 Peak PV Grad: 4.00 Updated in Other Vendor System with Status of Final Otis Ramirez MD electronically signed on 05/26/2024 11:11:42 PM with status of Final
== END ==
LOC: HO.CARD 08:07
PROVIDERS: PCP Family Medicine; Visit Provider Internal Medicine Cardiovascular Disease
DX: I25.10 Atherosclerotic heart disease of native coronary artery without angina pectoris (principal)
CPT/HCPCS: 93306

== ENCOUNTER → 2024-05-25 08:09 | Outpatient (BNV) | payer MEDICARE, SELFPAY ==
[2021-11-16 08:17] VITALS: BMI 45.8
== END ==
PROVIDERS: PCP Family Medicine; Visit Provider Internal Medicine Cardiovascular Disease
DX: I42.2 Other hypertrophic cardiomyopathy (principal); I34.81 Nonrheumatic mitral (valve) annulus calcification
CPT/HCPCS: 93306

== ENCOUNTER 2024-08-16 07:13 | Outpatient (AMB) | payer MEDICARE, SELFPAY ==
[2021-11-16 08:17] VITALS: BMI 45.8
[2024-08-16 07:33] VITALS: BP 104/64; PULSE 68; RESP 18; O2SAT 98; BMI 37.3
--- NOTE | 2024-08-16 07:33 | A.OFFPC_ITS ---
Vital Signs 08/16/24 07:33 Height 5 ft 6 in Weight 231 lb 3.2 oz BMI 37.3 BP 104/64 Blood Pressure Location Lt brachial Position Sitting Respiration 18 Pulse 68 Pulse Source Pulse Oximeter Pulse Oximetry (%) 98 Oxygen Delivery Method Room Air Intake Visit Reasons: establish care Intake Note: Patient is a new patient here to establish care. Transferring care from [facility] in [facility]. Medical records have been requested and have not been received. [employer] Required: No Accompanied by: Self / Same As Patient Allergies No Known Allergies Allergy (Verified 08/16/24 07:50) Medication List - Last Reconciled 08/16/24 by Jazzmine Tipton MD albuterol sulfate 90 mcg/actuation 2 inhalations inhalation Q6H PRN 30 days amitriptyline 25 mg PO DAILY atenolol 25 mg PO DAILY 90 days atorvastatin 80 mg PO BEDTIME clopidogrel 75 mg PO DAILY gabapentin 600 mg PO BID levothyroxine 175 mcg PO 6XW lisinopril 5 mg PO BEDTIME umeclidinium-vilanterol 62.5-25 mcg/actuation (Anoro Ellipta) 1 inh inhalation DAILY Tobacco use date assessed: 08/16/24 Fall risk assessment: No Falls in past year Last assessed Fall Risk: 08/16/24 Dental Screening Dental Screen Date: 08/16/24 Did you have a dental visit in the last 12 months?: No Did you have a dental problem in the last 6 months where you did not have access to dental care?: No Was dental information given to patient?: No HPI HPI Comments History of Present Illness Details The patient is a 74-year-old female presenting with balance issues. She reports feeling unsteady when standing up and often needs to reach out for support. This has been attributed to a vasovagal reaction, and she has been advised to move slowly to avoid drastic movements. The patient has a history of coronary artery disease, having experienced a STEMI in 2021, which was treated with PCI. She is currently on atorvastatin and a tenolol for management. She also has chronic obstructive pulmonary disease (COPD) and uses Anoro as needed, prescribed by her whitesmith, Dr. Carlton. She denies any recent chest pain or dyspnea. The patient has hypothyroidism, managed with levothyroxine, and her thyroid levels have been stable. She reports neuropathy, for which she takes gabapentin and amitriptyline. She has been diagnosed with neuropathy and is being referred to neurology for further evaluation. The patient experiences gastrointestinal issues, including constipation and diarrhea, which she manages with dietary adjustments and this is secondary to tears appetite which she buys it online. Her preventative care is up to date with vaccinations, mammogram, and colonoscopy, and she has a bone density test scheduled. [facility] Medical History (Updated 08/16/24 @ 08:09 by Jazzmine Tipton MD) Morbid obesity History of ST elevation myocardial infarction (STEMI) Hypothyroid COPD (chronic obstructive pulmonary disease) Lower extremity edema Surgical History History of cholecystectomy History of right knee surgery History of cardiac catheterization Family History (Updated 08/16/24 @ 07:58 by Jazzmine Tipton MD) Father Hypertension Stroke Mother Lung cancer Maternal Grandmother Pacemaker Paternal Grandmother Myocardial infarction Social History Household Members: Spouse Household Members Other:: Dipak, Housing: House Alcohol intake: never Patient Tobacco Use Status: Former Tobacco user e-Cigarette/Vaping Use: Never Used service: No Current occupational status: retired Cognitive needs: No Hearing needs: No Vision needs: Yes (Reading glasses) Questionnaire PHQ-9 Over the last 2 weeks, how often have you been bothered by any of the following problems? 1. Little interest or pleasure in doing things: not at all 2. Feeling down, depressed, or hopeless: not at all 3. Trouble falling or staying asleep, or sleeping too much: not at all 4. Feeling tired or having little energy: several days 5. Poor appetite or overeating: not at all 6. Feeling bad about yourself - or that you are a failure or have let yourself or your family down: not at all 7. Trouble concentrating on things, such as reading the newspaper or watching television: not at all 8. Moving or speaking so slowly that other people could have noticed. Or the opposite - being so fidgety or restless that you have been moving around a lot more than usual: not at all 9. Thoughts that you would be better off or of hurting yourself in some way: not at all Total score: 1 Depression Screening Interpretation: Negative Depression Screening Done: Yes 12828 - PHQ-9 Billing: Yes Source: Developed by Drs. Allan Wing, Briana Barnes, [employer] and colleagues, with an educational missy from [employer]. Thrive Questionnaire Date Thrive assessed: 08/16/24 I am a: Patient What is your living situation today?: I have a steady place to live Within the past 12 months, did the food you bought not last and you didn't have the money to get more?: Never true Within the past 12 months, did you worry whether your food would run out before you got money to buy more?: Never true Do you have trouble paying for medicines?: No Do you have trouble getting transportation to medical appointments?: No Do you have trouble paying your heating and electricity bill?: No Do you have trouble taking care of your child, family member or friend?: No Do you have trouble with day-to-day activities such as bathing, preparing meals, shopping, managing finances, etc.?: No Are you currently unemployed and looking for a job?: No Are you interested in more education?: No Please select the resources that you would like help with: None Currently or been in a relationship where the following occur: No concerns reported THRIVE Score: 0 AUDIT C Alcohol Use Questionnaire (AUDIT-C) 1. How often do you have a drink containing alcohol?: Never Total Score: 0 Score Reviewed/Action Taken: No ZION-7 AMB Questionnaire ZION-7 Date ZION - 7 assessed: 08/16/24 Feeling nervous, anxious, or on edge: 0 = Not at all Not being able to stop or control worryin = Not at all Worrying too much about different things: 0 = Not at all Trouble relaxin = Not at all Being so restless that it is hard to sit still: 0 = Not at all Becoming easily annoyed or irritable: 0 = Not at all Feeling afraid as if something awful might happen: 0 = Not at all Total ZION-7 score (0-4 normal; 5-9 mild; 10-14 moderate; 15-21 severe): 0 Source: Developed by Briana Horvath Kurt Kroenke and colleagues, with an educational missy from [employer]. ZION-7 Assessment Billing ZION-7 Assessment Tool: ZION-7 Assessment 62280 Review of Systems Const All systems reviewed & are unremarkable except as noted in HPI and below Card Denies chest pain at rest, Denies chest pain with activity, Denies edema, Denies irregular heart rhythm, Denies claudication, Denies dyspnea, Denies dyspnea on exertion, Denies orthopnea, Denies paroxysmal nocturnal dyspnea and Denies slow heart rate Resp Denies cough, Denies dyspnea and Denies dyspnea on exertion Neuro Denies behavioral changes and Denies lack of coordination Psych Denies behavioral changes Physical exam (Primary Care) Vital Signs: Last Vital Signs Pulse 68 08/16/24 07:33 Resp 18 08/16/24 07:33 BP 104/64 08/16/24 07:33 Pulse Ox 98 08/16/24 07:33 Oxygen Delivery Method Room Air 08/16/24 07:33 BMI result Body Mass Index 37.3 BMI Assessment/Plan discussion: High BMI High, discussed plan: lifestyle, weight reduction, dietary and physical activity Tobacco/Smoking Status: Tobacco use Status Tobacco use date assessed 08/16/24 08/16/24 07:40 Patient Tobacco Use Status Former Tobacco user 08/16/24 07:44 e-Cigarette/Vaping Use Never Used 08/16/24 07:44 PHQ-9: PHQ-9 Score PHQ-9: Total score 1 08/16/24 07:46 Depression Screening Interpretation: Negative Thrive Assessment: Date of Thrive Assessment Date Thrive assessed 08/16/24 08/16/24 07:46 Currently or been in a relationship where the following occur: No concerns reported Resp Effort & Inspection: normal respiratory effort Auscultation: clear to auscultation bilaterally Cardio Jugular venous distension: no JVD Rate: regular rate Rhythm: regular rhythm Heart sounds: S1 normal heart sound present and S2 normal heart sound present Extrem General: Yes full ROM Coding Level of Care Code New Pt Level 4 (71119) Complex EM visit Add On G2211 Diagnoses Neuropathy G62.9 CAD (coronary artery disease) I25.10 Chronic obstructive pulmonary disease, unspecified COPD type J44.9 COPD type: unspecified COPD Hypothyroid E03.9 Essential hypertension I10 Class 2 obesity with body mass index (BMI) of 37.0 to 37.9 in adult E66.812; Z68.37 Loss of balance R26.89 Additional Codes ZION-7 Assessment Billing - ZION-7 Assessment Tool: ZION-7 Assessment 00455 ([id number]) PHQ-9 - 05854 - PHQ-9 Billing: Yes ([id number]) Time Spent (min) 26 Assessment & Plan Assessment & Plan (1) Neuropathy: Code(s): G62.9 - Polyneuropathy, unspecified Category: Medical (2) CAD (coronary artery disease): Comment: (s/p RAFAEL to RCA, LCx and LAD in 2021) Code(s): I25.10 - Atherosclerotic heart disease of [place] coronary artery without angina pectoris Category: Medical (3) COPD (chronic obstructive pulmonary disease): Comment: Partially reversible obstruction, asthma-copd overlap syndrome Code(s): J44.9 - Chronic obstructive pulmonary disease, unspecified Category: Medical Qualifiers: COPD type: unspecified COPD Qualified Code(s): J44.9 - Chronic obstructive pulmonary disease, unspecified (4) Hypothyroid: Code(s): E03.9 - Hypothyroidism, unspecified Category: Medical (5) Essential hypertension: Code(s): I10 - Essential (primary) hypertension Category: Medical (6) Class 2 obesity with body mass index (BMI) of 37.0 to 37.9 in adult: Code(s): E66.812 - Obesity, class 2; Z68.37 - Body mass index [BMI] 37.0-37.9, adult Category: Medical (7) Loss of balance: Code(s): R26.89 - Other abnormalities of gait and mobility Category: Medical Plan The patient will continue her current medications, including atorvastatin, atenolol, and levothyroxine, to manage her coronary artery disease and hypothyroidism. A referral to neurology will be made to address her neuropathy and balance issues, with a focus on further evaluation and management. Routine blood work will be ordered to monitor her cholesterol, thyroid function, and other metabolic parameters. Preventative care measures, including vaccinations and screenings, are up to date, with a bone density test scheduled. Patient was informed and verbally consented to the use of an ambient scribe for clinic note documentation during this visit. I discussed with the patient the importance of continuing her current medications to manage her coronary artery disease and hypothyroidism. We also talked about the need for a neurology referral to address her neuropathy and balance issues. I emphasized the importance of routine blood work to monitor her health status and ensure her preventative care measures are up to date. We reviewed the upcoming bone density test and confirmed her vaccinations and screenings are current. Orders: Orders Vitamin D 25-OH Total Today E55.9 - Vitamin D deficiency, unspecified Thyroid Stimulating Hormone Today E03.9 - Hypothyroidism, unspecified Thyroglobulin Antibodies Today E03.9 - Hypothyroidism, unspecified Thyroid Peroxidase Antibodies Today E03.9 - Hypothyroidism, unspecified Lipid Panel Today E78.5 - Hyperlipidemia, unspecified, I25.10 - Atherosclerotic heart disease of [place] coronary artery without angina pectoris Comprehensive [place]. Panel Fast Today I25.10 - Atherosclerotic heart disease of [place] coronary artery without angina pectoris Free T4 (Free Thyroxine) Today E03.9 - Hypothyroidism, unspecified Referrals Neurology Referral G62.9 - Polyneuropathy, unspecified Patient Instructions: - Continue taking all prescribed medications as directed. - Schedule and attend the neurology referral for balance and neuropathy evaluation. - Complete routine blood work as ordered, ensuring an 8-hour fast before testing. - Maintain up-to-date preventative care, including vaccinations and screenings.
== END 2024-08-16 08:06 | disposition home or self-care (01) ==
LOC: HO.HMCH 07:13
PROVIDERS: PCP Family Medicine; Visit Provider Internal Medicine
DX: G62.9 Polyneuropathy, unspecified (principal); I25.10 Atherosclerotic heart disease of native coronary artery without angina pectoris; J44.9 Chronic obstructive pulmonary disease, unspecified; E03.9 Hypothyroidism, unspecified; I10 Essential (primary) hypertension; E66.812 Obesity, class 2; Z68.37 Body mass index [BMI] 37.0-37.9, adult; R26.89 Other abnormalities of gait and mobility

== ENCOUNTER → 2024-08-16 07:13 | Outpatient (BNVA) | payer MEDICARE, SELFPAY ==
[2021-11-16 08:17] VITALS: BMI 45.8
== END ==
PROVIDERS: PCP Family Medicine; Visit Provider Internal Medicine
DX: G62.9 Polyneuropathy, unspecified (principal); I25.10 Atherosclerotic heart disease of native coronary artery without angina pectoris; J44.9 Chronic obstructive pulmonary disease, unspecified; E03.9 Hypothyroidism, unspecified; I10 Essential (primary) hypertension; R26.89 Other abnormalities of gait and mobility; E66.812 Obesity, class 2; Z68.37 Body mass index [BMI] 37.0-37.9, adult; Z71.3 Dietary counseling and surveillance; Z87.891 Personal history of nicotine dependence
CPT/HCPCS: 96127; 99202

== ENCOUNTER 2024-08-24 08:00 | Outpatient (REF) | payer MEDICARE, SELFPAY ==
[2021-11-16 08:17] VITALS: BMI 45.8
--- NOTE | ~2024-08-24 | MM_ITS ---
EXAMINATION: DXA BONE DENSITY AXIAL HISTORY: MENOPAUSAL STATE TECHNIQUE: [employer] Dual energy absorptiometry (DEXA) of the lumbar spine, total left hip, and femoral neck was performed. COMPARISON: There are no prior studies for comparison. FINDINGS: The bone mineral density of the lumbar spine is 1.291, corresponding to a T-score of 0.9, and a Z-score of 1.5. This is indicative of normal bone mineral density. The bone mineral density of the left total hip is 0.886, corresponding to a T-score of -1.0, and a Z-score of -0.2. This is indicative of normal bone mineral density. The bone mineral density of the left femoral neck is 0.851, corresponding to a T-score of -1.3, and a Z-score of -0.3. This is indicative of osteopenia. FRACTURE RISK: The FRAX index suggests a risk of major osteoporotic fracture of 9.4%, and of hip fracture 1.4%. MM/XR DEXA axial skeleton IMPRESSION: Based on bone mineral density, and according to World Health Organization (WHO) criteria, the diagnosis is consistent with osteopenia. All bone density values are in grams per centimeter squared (g/cm2). Statistically, 68% of repeat scans fall within 1 SD (+/- 0.010 g/cm2 for AP spine L1-L4) and 1 SD (+/- 0.012 g/cm2 for femur total) FRAX is a trademark of the [employer]'s [place] for Metabolic Bone Disease, a World Health Organization (WHO) Collaborating Center. Electronically signed by: Allan Anderson MD 08/27/2024 07:35 AM EDT
== END 2024-08-24 08:01 | disposition home or self-care (01) ==
LOC: HO.MAMMO 08:00
PROVIDERS: Visit Provider Family Medicine
DX: Z13.820 Encounter for screening for osteoporosis (principal); Z78.0 Asymptomatic menopausal state
CPT/HCPCS: 77080

== ENCOUNTER → 2024-08-24 08:15 | Outpatient (BNV) | payer MEDICARE, SELFPAY ==
[2021-11-16 08:17] VITALS: BMI 45.8
== END ==
PROVIDERS: Visit Provider Radiology Diagnostic Radiology
DX: E28.39 Other primary ovarian failure (principal)
CPT/HCPCS: 77080

== ENCOUNTER 2024-09-06 07:43 | Outpatient (REF) | payer MEDICARE, SELFPAY ==
[2021-11-16 08:17] VITALS: BMI 45.8
[2024-09-06 15:52] LABS: Alanine Aminotransferase 23 U/L (0-31); Albumin Level 4.0 g/dL (3.5-5.0); Alkaline Phosphatase 85 U/L (39-117); Anion Gap 10 (12-20); Aspartate Amino Transferase 40 U/L (5-31); Blood Urea Nitrogen 11 mg/dL (9-16); Calcium 9.1 mg/dL (8.4-10.2); Carbon Dioxide 26 mmol/L (22-29); Chloride 108 mmol/L (96-108); Cholesterol 105 mg/dL (<200); Estimated Glomerular Filt Rate > 60; Folate 3.8 ng/mL (> or = 4.0); HDL Cholesterol 40 mg/dL (>40); Potassium 4.8 mmol/L (3.3-5.1); Sodium 139 mmol/L (135-145); Total Protein 6.6 g/dL (6.5-8.0); Triglycerides 63 mg/dL (<150); Vitamin B12 389 pg/mL (200-900)
[2024-09-06 15:54] LABS: Free T4 (Free Thyroxine) 1.44 ng/dL (0.71-1.85); Thyroid Stimulating Hormone 0.04 uIU/mL (0.32-4.0)
[2024-09-10 17:53] LABS: Thyroglobulin Antibodies <1 IU/mL (< or = 1)
== END 2024-09-06 07:44 | disposition home or self-care (01) ==
LOC: HO.HKASLDS 07:43
PROVIDERS: PCP Internal Medicine; Visit Provider Psychiatry & Neurology Neurology
DX: G60.9 Hereditary and idiopathic neuropathy, unspecified (principal); I25.10 Atherosclerotic heart disease of native coronary artery without angina pectoris; E03.9 Hypothyroidism, unspecified; E78.5 Hyperlipidemia, unspecified; E55.9 Vitamin D deficiency, unspecified; R27.8 Other lack of coordination
CPT/HCPCS: 36415; 80053; 80061; 82306; 82607; 82746; 84439; 84443; 86376; 86800; 99202

== ENCOUNTER 2024-09-06 07:43 | Outpatient (AMB) | payer MEDICARE, SELFPAY ==
[2021-11-16 08:17] VITALS: BMI 45.8
[2024-09-06 07:47] VITALS: BP 118/72; PULSE 75; O2SAT 95; BMI 37.3
--- NOTE | 2024-09-06 07:47 | A.OFFVIS_ITS ---
Vital Signs 09/06/24 07:47 Height 5 ft 6 in Weight 231 lb BMI 37.3 BP 118/72 Blood Pressure Location Lt brachial Position Sitting Pulse 75 Pulse Source Pulse Oximeter Pulse Oximetry (%) 95 Oxygen Delivery Method Room Air Intake Visit Reasons: INP - Polyneuropathy Intake Note: Patient referred in house by Dr. Patel for neuropathy Allergies No Known Allergies Allergy (Verified 09/06/24 07:48) Medication List - Last Reconciled 09/06/24 by Edel Liao MD albuterol sulfate 90 mcg/actuation 2 inhalations inhalation Q6H PRN 30 days amitriptyline 25 mg PO DAILY atenolol 25 mg PO DAILY 90 days atorvastatin 80 mg PO BEDTIME clopidogrel 75 mg PO DAILY gabapentin 600 mg PO BID levothyroxine 175 mcg PO 6XW lisinopril 5 mg PO BEDTIME umeclidinium-vilanterol 62.5-25 mcg/actuation (Anoro Ellipta) 1 inh inhalation DAILY HPI Comments Details: * 74y/o female with peripheral neuropathy , sensory ataxia diagnosed in 2012 comes for further management. She started noticing having numbness, paresthesias in her feet and also gait difficulties, leg cramps. she was seen by Dr. Medina - MRI brain , MRI C spine, EMG , labs - Vit B 12 and other were checked. EMG showed mild sensory neuropathy . she was seen by Dr. Medina annually and is on gabapentin 600mg 2 tabs qhs amitriptyline 25 mg qhs . * she was last seen by Dr. Medina in 2020 before he moved. * She reports her balance and gait has worsened.No recent falls. she campbell snot use any assistive devices. she has back pain - manageable . * Her nocturnal cramps are controlled with gabapentin 1200mg qhs amitriptyline. * she sleeps good. [facility] Medical History (Updated 09/06/24 @ 08:36 by Edel Liao MD) Sensory ataxia Peripheral neuropathy Morbid obesity History of ST elevation myocardial infarction (STEMI) Hypothyroid COPD (chronic obstructive pulmonary disease) Lower extremity edema Surgical History History of cholecystectomy History of right knee surgery History of cardiac catheterization Family History Father Hypertension Stroke Mother Lung cancer Maternal Grandmother Pacemaker Paternal Grandmother Myocardial infarction Social History Household Members: Spouse Household Members Other:: Dipak, Housing: House Alcohol intake: never Patient Tobacco Use Status: Former Tobacco user e-Cigarette/Vaping Use: Never Used service: No Current occupational status: retired Cognitive needs: No Hearing needs: No Vision needs: Yes (Reading glasses) Physical Exam Vital Signs: Last Vital Signs Pulse 75 09/06/24 07:47 BP 118/72 09/06/24 07:47 Pulse Ox 95 09/06/24 07:47 Oxygen Delivery Method Room Air 09/06/24 07:47 BMI result Body Mass Index 37.3 Const General: cooperative, healthy appearing and comfortable Nutritional Appearance: average body habitus Orientation/consciousness: patient oriented x3 Eyes Pupils: Equal, round and reactive pupils present Neuro Other: gait- mild wide based , positive rombergs cannot tandem Decreased PP and vibration in distal LE General: patient oriented x3, tone normal, moves all extremities and no focal motor deficits Cranial nerves: Yes Facial sensation intact/muscles of mastication intact, Yes Equal, round and reactive pupils present, Yes Bilaterally intact EOM present, Yes Nystagmus not present, Yes Normal facial strength present, Yes Midline tongue present, Yes Symmetric palate elevation present and Yes Ability to bilaterally elevate shoulders present Cognition (Neuro): normal cognition Motor exam (neuro): 5/5 motor strength present throughout and Normal motor muscle tone present throughout Deep tendon reflexes (DTR's): Right triceps reflex intensity grade: 1+, Left triceps reflex intensity grade: 1+, Rt Biceps (C5, C6): 1+, Left biceps reflex intensity grade: 1+, Right brachioradialis reflex intensity grade: 1+, Left brachioradialis reflex intensity grade: 1+, Right patellar reflex intensity grade: 1+ and Left patellar reflex intensity grade: 1+ Coordination: [id number] test normal Assessment & Plan Assessment & Plan (1) Peripheral neuropathy: Code(s): G62.9 - Polyneuropathy, unspecified Category: Medical Qualifiers: Peripheral neuropathy type: idiopathic neuropathy, unspecified Qualified Code(s): G60.9 - Hereditary and idiopathic neuropathy, unspecified (2) Sensory ataxia: Code(s): R27.8 - Other lack of coordination Category: Medical Plan Reviewed records from 2013- note EMG MRi+I Brain and C spine ,labs I will repeat EMG LE for reevaluation Check Vit B 12 levels Discussed about fall prevention Orders: Orders Vitamin B12 and Folate Today G62.9 - Polyneuropathy, unspecified NE electromyogram (EMG) Today G62.9 - Polyneuropathy, unspecified NE nerve conduction velocity Today G62.9 - Polyneuropathy, unspecified Coding Level of Care Code New Pt Level 4 (82020) Diagnoses Idiopathic peripheral neuropathy G60.9 Peripheral neuropathy type: idiopathic neuropathy, unspecified Sensory ataxia R27.8
== END 2024-09-06 08:31 | disposition home or self-care (01) ==
LOC: HO.HSMS 07:44
PROVIDERS: PCP Internal Medicine; Visit Provider Psychiatry & Neurology Neurology
DX: G60.9 Hereditary and idiopathic neuropathy, unspecified (principal); R27.8 Other lack of coordination
CPT/HCPCS: 99204

== ENCOUNTER 2024-10-23 08:08 | Outpatient (REF) | payer MEDICARE, SELFPAY ==
[2021-11-16 08:17] VITALS: BMI 45.8
--- NOTE | 2024-10-23 08:11 | EMG_ITS ---
Patient Complaints: Neuropathy bilateral lower extremity Bilateral tibial and peroneal motor studies were performed bilateral superficial peroneal and sural sensory studies were performed tibial H reflexes were obtained an EMG needle examination was performed. Impression: [id number], chronic, axonal, sensory and motor peripheral neuropathy MTDD
== END 2024-10-23 08:09 | disposition home or self-care (01) ==
LOC: HO.NEURO 08:08
PROVIDERS: PCP Internal Medicine; Visit Provider Psychiatry & Neurology Neurology
DX: G62.9 Polyneuropathy, unspecified (principal)
CPT/HCPCS: 95886; 95911

== ENCOUNTER → 2024-10-23 08:11 | Outpatient (BNV) | payer MEDICARE, SELFPAY ==
[2021-11-16 08:17] VITALS: BMI 45.8
== END ==
PROVIDERS: PCP Internal Medicine; Visit Provider Psychiatry & Neurology Neurology
DX: G62.89 Other specified polyneuropathies (principal)
CPT/HCPCS: 95886; 95911

== ENCOUNTER 2024-12-18 07:56 | Outpatient (AMB) | payer MEDICARE, SELFPAY ==
[2021-11-16 08:17] VITALS: BMI 45.8
--- OUTSIDE RECORDS SUMMARY | 2024-12-18 08:00 | XMS_ITS | Clinical Summary ---
Author Organization [facility] Address [address] [address] Phone Care Team Providers Care Emergency Management Consultant Name Role Phone Alonso Delgado MD Primary Care Provider [phone] Allergies No known active allergies Medications levothyroxine (SYNTHROID, LEVOTHROID) 175 MCG tablet Take 175 mcg by mouth every morning. Active gabapentin (NEURONTIN) 600 MG tablet Take 600 mg by mouth 3 (three) times a day. Active amitriptyline (ELAVIL) 25 MG tablet Take 50 mg by mouth nightly at bedtime. Active etodolac (LODINE) 300 MG capsule Take 300 mg by mouth every 8 (eight) hours. Active magnesium oxide 250 mg (150 mg elemental) Tab Take 250 mg by mouth daily. Active VENTOLIN HFA 90 mcg/actuation inhaler INHALE 2 PUFFS BY MOUTH EVERY 4 HOURS 04/27/2021 Active trospium (SANCTURA) 20 mg tablet Take 20 mg by mouth 2 (two) times a day. 07/06/2021 Active fluticasone-ume clidin-vilanter (TRELEGY ELLIPTA) 100-62.5-25 mcg inhalation powder Inhale 1 puff into the lungs daily. 60 each 5 07/22/2021 Active Active Problems Problem Noted Date Diagnosed Date Dyspnea on exertion 07/10/2021 Assessment & Plan (07/10/2021 12:21 PM EDT): Slowly progressive dyspnea on exertion of unclear etiology. Suspect multifactorial in origin. Severity of symptoms out of proportion to PFTs with only mild airflow obstruction and clear lung exam. Walk with oximetry in office without desaturations. Thus with clear lungs, chronic hypersensitivity pneumonitis such as due to Bakers lung highly unlikely. Patient reports negative chest x-ray several years ago, and a pharmacologic stress test within the last several months presumably also negative. RECOMMENDATIONS: Request outside records, including previous chest x-ray report and stress test reports Repeat baseline chest x-ray Repeat empiric trial of bronchodilator therapy Full echocardiogram Weight loss and exercise encouraged Chronic obstructive pulmonary disease 07/10/2021 Assessment & Plan (07/10/2021 12:20 PM EDT): Mild airflow obstruction on PFTs, requesting grafts for direct evaluation. As above, dyspnea out of proportion to physiology. Nonetheless, given sample for empiric trial of triple inhaler therapy with TRELEGY ELLIPTA, 1 puff once daily for 14 days. Patient to call if finds beneficial. Family History Medical History Relation Comments Lymphoma Father Stroke Father Relation Status Comments Father Social History Tobacco Use Types Packs/Day Years Used Date Smoking Tobacco: Former Cigarettes 1989 Smokeless Tobacco: Never Alcohol Use Standard Drinks/Week Comments Not Currently 0 (1 standard drink = 0.6 oz pure alcohol) reare couple glasses of wine per year Education Answer Date Recorded Are you interested in more education? Not on [place] e 07/02/2022 Are you concerned about learning? Not on file 07/02/2022 No 07/02/2022 No 07/02/2022 Digital Access Answer Date Recorded No 08/02/2022 No 08/02/2022 No 08/02/2022 Reliable internet access at home? Not on file 08/02/2022 Device with a working camera? Not on file Comments Unknown Sex and Gender Information Value Date Recorded Sex Assigned at Not on file Legal Sex Female 10:00 PM EDT Gender Identity Not on file Sexual Orientation Not on file Last Filed Vital Signs Vital Sign Reading Time Taken Comments Blood Pressure 162/88 01/23/2020 8:43 AM EST Pulse 88 01/23/2020 7:02 AM EST Temperature 36 C (96.8 F) 01/23/2020 8:28 AM EST Respiratory Rate 16 01/23/2020 8:43 AM EST Oxygen Saturation 99% 01/23/2020 8:43 AM EST Inhaled Oxygen Concentration - - Weight 122.5 kg (270 lb) 01/21/2020 1:51 PM EST Height 167.6 cm (5' 6 ) 07/10/2021 10:49 AM EDT Body Mass Index 43.58 01/21/2020 1:51 PM EST Plan of Treatment Health Maintenance Due Date Last Done Comments LIPID PANEL 1950 TSH LEVEL 1950 DEPRESSION SCREENING 1963 SMOKING Hx and SMOKELESS TOBACCO SCREENING 02/22/1964 HEPATITIS C SCREENING 1969 MAMMOGRAM 1991 COLOGUARD 02/22/1996 FIT TEST 02/22/1996 FOBT 02/22/1996 SIGMOIDOSCOPY 02/22/1996 VIRTUAL COLONOSCOPY 02/22/1996 RSV VACCINE (1 - Risk 50-74 years 1-dose series) 2001 OSTEOPOROSIS SCREENING INITIAL (ONE-TIME) 02/22/2016 ZOSTER VACCINES (3 of 3) 08/12/2021 06/17/2021, 03/2014 INFLUENZA VACCINE (#1) 2024 , 01/06/2020, 02/08/2019, Additional history exists COVID-19 VACCINE ( season) 2024 03/01/2021, 06/09/2020 Adult Td,Tdap Booster 06/02/2025 06/03/2015, 010 COLONOSCOPY 01/22/2030 01/23/2020 COLORECTAL CANCER SCREENING 01/22/2030 HEPATITIS A VACCINES Aged Out 03/02/2007 No long er eligible based on patient's age to complete this topic PNEUMOCOCCAL VACCINES (50+ years) Completed 12/28/2017, 09/13/2016 HIB VACCINES Aged Out No longer eligi ble based on patient's age to complete this topic MENINGOCOCCAL VACCINES (ACWY) Aged Out No longer eligible based on patient's age to complete this topic MENINGOCOCCAL VACCINES (B) Aged Out N o longer eligible based on patient's age to complete this topic Medical Devices Not on file Procedures Procedure Name Priority Date/Time Associated Diagnosis Comments ENDOSCOPY, COLON 01/23/2020 7:29 AM EST from Last 3 Months or Most Recently Relevant to Health Maintenance Results * ENDOSCOPY, COLON (01/23/2020 7:29 AM EST) Narrative Transcriptions Yeyo Olivarez MD - 01/23/2020 7:29 AM EST Patient Name: Francine Zafar Attending MD:: YEYO OLIVAREZ MD Procedure Date: 01/23/2020 7:29 AM Date of : 1950 Age: 69 Admit Type: Outpatient Gender: Female Room: [place] [address] Referring MD: ALONSO DELGADO MD Exam Type: Colonoscopy Indications: Screening for colorectal malignant neoplasm, Last colonoscopy: 2009 Medications: Monitored Anesthesia Care Procedure: Informed consent was obtained from the patient after discussion of the indications, limitations, alternatives, benefits, and risks of the procedure. Risks specifically discussed include but are not limited to medication reactions, missed lesions, bleeding, perforation, or the need for emergentsurgery. Throughout the procedure, the patient's bloodpressure, pulse, end-tidal CO2, and oxygen saturations were monitored continuously. The Olympus adult variable colonoscope [id number] #7was introduced through the anus and advanced to the terminal ileum. The colonoscopy was performedwithout difficulty. The patient tolerated the procedurewell. The quality of the bowel preparation was good. Complications: No immediate complications. Estimated blood loss:None. Findings: The perianal and digital rectal examinations were normal. The rectum, recto-sigmoid colon, sigmoid colon, descending colon, splenic flexure, transverse colon, hepatic flexure, ascending colon, cecum, appendiceal orifice, ileocecal valve, ileum, rectum (on retroflexion) and ascending colon (on retroflexion) appeared normal. Impression: - The rectum, recto-sigmoid colon, sigmoid colon, descending colon, splenic flexure, transverse colon, hepatic flexure, ascending colon, cecum, appendiceal orifice, ileocecal valve and terminal ileum arenormal. - No specimens collected. Recommendation: - Discharge patient to home. - Resume previous diet. - Continue present medications. - Repeat colonoscopy in 10 years for screeningpurposes. YEYO OLIVAREZ MD 01/23/2020 8:29:26 AM This report has been signed electronically. Number of Addenda: 0 Note Initiated On: 01/23/2020 7:29 AM Procedure Code(s): --- Professional --- 70294, Colonoscopy, flexible; diagnostic, including collection of specimen(s) by brushing or washing, when performed (separateprocedure) --- Technical --- 07232, Colonoscopy, flexible; diagnostic, including collection of specimen(s) by brushing or washing, when performed (separateprocedure) Diagnosis Code(s): --- Professional --- Z12.11, Encounter for screening for malignantneoplasm of colon --- Technical --- Z12.11, Encounter for screening for malignantneoplasm of colon CPT copyright 2018 [employer]. All rights reserved. The codes documented in this report are preliminary and upon unit director reviewmay be revised to meet current compliance requirements. Procedure Date: 01/23/2020 7:29:[address] [place] [id number] Alonso Delgado MD GI PROCEDURE ORDERABLES Final Result from Last 3 Months or Most Recently Relevant to Health Maintenance Insurance MEDICARE PART A & B [employer] - [place] MEDEX SUPPLEMENT MEDICARE PART A & B [employer] - [place] MEDEX SUPPLEMENT MEDICARE PART A & B [employer] - [place] MEDEX SUPPLEMENT MEDICARE PART A & B [employer] - [place] MEDEX SUPPLEMENT MEDICARE PART A & B [employer] [place] MEDEX SUPPLEMENT MEDICARE PART A & B [employer] - [place] MEDEX SUPPLEMENT MEDICARE PART A & B Member Subscriber Plan / Payer (Ef fective 2019-Present) Name:CharismaFrancine perez Member ID:[id number] Relation to Subscriber:Self Name:Francine Zafar Subscriber ID:[id number] Payer ID:[id number] Group ID:Not on file Type:Medicare [facility] [address] [facility] MEDEX SUPPLEMENT MEDICARE PART A & B [employer] - [place] MEDEX SUPPLEMENT MEDICARE PART A & B [employer] - [place] MEDEX SUPPLEMENT Care Teams Emergency Management Consultant Relationship Specialty Start Date End Date Alonso Delgado MD PCP - General 12/20/16 Additional Source Comments The information contained in this document represents components of the legal health record. It is not the complete legal health record.[facility]
--- OUTSIDE RECORDS SUMMARY | 2024-12-18 08:00 | XMS_ITS | Encounter Summary ---
Author Organization [facility] Address [address] [facility] [address] [place] [address] Phone Care Team Providers Care Insect Control Inspector Name Role Phone Alonso Taylor MD Primary Care Provider [phone] Encounter Details Date Type Department Care Team (Late st Contact Info) Description 01/23/2020 Procedure Pass [facility] Endoscopy Admitting Dept Virtual Department [address] [place] [id number] Social History Tobacco Use Types Packs/Day Years Used Date Smoking Tobacco: Former Cigarettes Q uit: 1989 Smokeless Tobacco: Never Alcohol Use Standard Drinks/Week Comments Not Currently 0 (1 standard drink = 0.6 oz pure alcohol) reare couple glasses of wine per year Comments Unknown Sex and Gender Information Value Date Recorded Sex Assigned at Not on file Legal Sex Female 10:00 PM EDT Gender Identity Not on file Sexual Orientation Not on file documented as of this encounter Plan of Treatment Not on file documented as of this encounter Visit Diagnoses Not on filedocumented in this encounter Care Teams Insect Control Inspector Relationship Specialty Start Date End Date Alonso Taylor MD PCP - General 12/20/16 documented as of this encounter Additional Source Comments The information contained in this document represents components of the legal health record. It is not the complete legal health record.[facility]
--- OUTSIDE RECORDS SUMMARY | 2024-12-18 08:00 | XMS_ITS | Encounter Summary ---
Author Organization [facility] Address [address] [address] Phone Care Team Providers Care Signs Sales Representative Name Role Phone Alonso Taylor MD Primary Care Provider [phone] Reason for Referral * Consultation (Elective) - Closed Specialty Diagnoses / Procedures Referred By Lashay t Referred To Contact Pulmonary Disease Alonso Taylor MD Phone: tel: fax: [email or web address] [facility] [address] [place] [address] Phone: tel: Referral ID Status Reason Start Date Expiration Date Visits Re quested Visits Authorized [id number] Closed 05/08/2021 05/08/2022 1 1 Encounter Details Date Type Department Care Team (Late st Contact Info) Description 05/08/2021 Transcribe Orders [facility] [place], Allergy and Critical Care Medicine [address] [facility] [place] [address] Alonso Taylor MD [address] [place] [address] [email or web address] Social History Tobacco Use Types Packs/Day Years [...] as of this encounter Plan of Treatment Scheduled Referrals Name Type Priority Associated Diagnoses Order Schedule Ambulatory referral to [facility] Pulmonology Outpatient Referral Routine Ordered: 05/08/2021 documented as of this encounter Visit Diagnoses Not on filedocumented in this encounter Care Teams Signs Sales Representative Relationship Specialty Start Date End Date Alonso Taylor MD [email or web address] PCP - General 12/20/16 documented as of this encounter Additional Source Comments The information contained in this document represents components of the legal health record. It is not the complete legal health record.[facility]
[2024-12-18 08:05] VITALS: BP 128/68; PULSE 64; O2SAT 98; BMI 35.8
--- NOTE | 2024-12-18 08:05 | MHC.PC.OV ---
Vital Signs 12/18/24 08:05 Height 5 ft 6 in Weight 222 lb BMI 35.8 BP 128/68 Blood Pressure Location Lt brachial Position Sitting Pulse 64 Pulse Source Pulse Oximeter Pulse Oximetry (%) 98 Oxygen Delivery Method Room Air Intake Visit Reasons: copd,[facility] Agent Required: No Accompanied by: Self / Same As Patient Allergies No Known Allergies Allergy (Verified 12/18/24 08:17) Medication List - Last Reconciled 12/18/24 by Jazzmine Tipton MD albuterol sulfate 90 mcg/actuation 2 inhalations inhalation Q6H PRN 30 days amitriptyline 25 mg PO DAILY atenolol 25 mg PO DAILY 90 days atorvastatin 80 mg PO BEDTIME cholecalciferol (vitamin D3) 50 mcg PO DAILY 90 days clopidogrel 75 mg PO DAILY folic acid 1 mg PO DAILY gabapentin 600 mg PO BID 90 days levothyroxine (Synthroid) 150 mcg PO DAILY 90 days lisinopril 5 mg PO BEDTIME umeclidinium-vilanterol 62.5-25 mcg/actuation (Anoro Ellipta) 1 inh inhalation DAILY Tobacco use date assessed: 08/16/24 Fall risk assessment: No Falls in past year Last assessed Fall Risk: 12/18/24 Dental Screening Dental Screen Date: 08/16/24 HPI HPI Comments History of Present Illness Details The patient is a 74-year-old female presenting with management of chronic conditions including coronary artery disease, COPD, and polyneuropathy. She follows with cardiology for coronary artery disease and pulmonology for COPD, with an upcoming appointment next month. She also sees neurology for polyneuropathy, for which a referral was recently sent. The patient is on multiple medications including atenolol for blood pressure, atorvastatin for cholesterol, and clopidogrel for coronary artery disease. She also takes gabapentin for polyneuropathy and levothyroxine for hypothyroidism. Her vitamin D levels were previously low, and she is on supplementation. The patient reports feeling well overall but notes balance issues, particularly when standing up quickly, which sometimes causes her to step backward. She is aware of the need to move cautiously to prevent falls. A recent bone density test indicated osteopenia, and she is advised to take calcium with vitamin D. [facility] Medical History (Updated 12/18/24 @ 08:34 by Jazzmine Tipton MD) Sensory ataxia Peripheral neuropathy Morbid obesity History of ST elevation myocardial infarction (STEMI) Hypothyroid COPD (chronic obstructive pulmonary disease) Lower extremity edema Surgical History History of cholecystectomy History of right knee surgery History of cardiac catheterization Family History Father Hypertension Stroke Mother Lung cancer Maternal Grandmother Pacemaker Paternal Grandmother Myocardial infarction Social History Household Members: Spouse Household Members Other:: Dipak, Housing: House Alcohol intake: never Patient Tobacco Use Status: Former Tobacco user Tobacco use type: Cigarette e-Cigarette/Vaping Use: Never Used Second Hand Smoke Exposure: No service: No Current occupational status: retired Cognitive needs: No Hearing needs: No Vision needs: Yes (Reading glasses) Questionnaire Thrive Questionnaire Date Thrive assessed: 08/16/24 I am a: Patient What is your living situation today?: I have a steady place to live Within the past 12 months, did the food you bought not last and you didn't have the money to get more?: Never true Within the past 12 months, did you worry whether your food would run out before you got money to buy more?: Never true Do you have trouble paying for medicines?: No Do you have trouble getting transportation to medical appointments?: No Do you have trouble paying your heating and electricity bill?: No Do you have trouble taking care of your child, family member or friend?: No Do you have trouble with day-to-day activities such as bathing, preparing meals, shopping, managing finances, etc.?: No Are you currently unemployed and looking for a job?: No Are you interested in more education?: No Please select the resources that you would like help with: None Currently or been in a relationship where the following occur: No concerns reported THRIVE Score: 0 ZION-7 AMB Questionnaire ZION-7 Date ZION - 7 assessed: 08/16/24 Source: Developed by Drs. Allan Wing, Briana Barnes, Casa Jessica and colleagues, with an educational missy from [employer]. Review of Systems Const All systems reviewed & are unremarkable except as noted in HPI and below Card Denies chest pain at rest, Denies chest pain with activity, Denies edema, Denies irregular heart rhythm, Denies claudication, Denies dyspnea, Denies dyspnea on exertion, Denies orthopnea, Denies paroxysmal nocturnal dyspnea and Denies slow heart rate Resp Denies cough, Denies dyspnea and Denies dyspnea on exertion GI Denies abdominal pain, Denies change in bowel habits, Denies excessive flatus, Denies nausea and Denies vomiting Physical exam (Primary Care) Vital Signs: Last Vital Signs Pulse 64 12/18/24 08:05 BP 128/68 12/18/24 08:05 Pulse Ox 98 12/18/24 08:05 Oxygen Delivery Method Room Air 12/18/24 08:05 BMI result Body Mass Index 35.8 Tobacco/Smoking Status: Tobacco use Status Tobacco use date assessed 08/16/24 12/18/24 08:08 Patient Tobacco Use Status Former Tobacco user 12/18/24 08:08 Tobacco use type Cigarette 12/18/24 08:08 e-Cigarette/Vaping Use Never Used 12/18/24 08:08 Thrive Assessment: Date of Thrive Assessment Date Thrive assessed 08/16/24 12/18/24 08:08 Currently or been in a relationship where the following occur: No concerns reported Resp Effort & Inspection: normal respiratory effort Auscultation: clear to auscultation bilaterally Cardio Jugular venous distension: no JVD Rate: regular rate Rhythm: regular rhythm Heart sounds: S1 normal heart sound present and S2 normal heart sound present Extrem General: Yes full ROM Coding Level of Care Code Est Pt Level 4 (50680) Complex EM visit Add On G2211 Diagnoses Essential hypertension I10 CAD (coronary artery disease) I25.10 Hypothyroid E03.9 Osteopenia M85.80 Idiopathic peripheral neuropathy G60.9 Peripheral neuropathy type: idiopathic neuropathy, unspecified Chronic obstructive pulmonary disease, unspecified COPD type J44.9 COPD type: unspecified COPD Time Spent (min) 23 Assessment & Plan Assessment & Plan (1) Essential hypertension: Code(s): I10 - Essential (primary) hypertension Category: Medical (2) CAD (coronary artery disease): Comment: (s/p RAFAEL to RCA, LCx and LAD in 2021) Code(s): I25.10 - Atherosclerotic heart disease of [place] coronary artery without angina pectoris Category: Medical (3) Hypothyroid: Code(s): E03.9 - Hypothyroidism, unspecified Category: Medical (4) Osteopenia: Code(s): M85.80 - Other specified disorders of bone density and structure, unspecified site Category: Medical (5) Peripheral neuropathy: Code(s): G62.9 - Polyneuropathy, unspecified Category: Medical Qualifiers: Peripheral neuropathy type: idiopathic neuropathy, unspecified Qualified Code(s): G60.9 - Hereditary and idiopathic neuropathy, unspecified (6) COPD (chronic obstructive pulmonary disease): Comment: Partially reversible obstruction, asthma-copd overlap syndrome Code(s): J44.9 - Chronic obstructive pulmonary disease, unspecified Category: Medical Qualifiers: COPD type: unspecified COPD Qualified Code(s): J44.9 - Chronic obstructive pulmonary disease, unspecified Plan Plan Patient was informed and verbally consented to the use of an ambient scribe for clinic note documentation during this visit. 1. Coronary Artery Disease The patient continues to follow with cardiology for coronary artery disease management. She is currently on atorvastatin and clopidogrel as part of her treatment regimen. 2. Chronic Obstructive Pulmonary Disease (Copd) The patient is scheduled for a follow-up with pulmonology next month for COPD management. She uses Anoro as a daily inhaler for maintenance therapy. 3. Polyneuropathy The patient is under the care of neurology for polyneuropathy and is taking gabapentin for symptom management. 4. Hypothyroidism The patient's thyroid function will be re-evaluated today to ensure appropriate levothyroxine dosing. 5. Osteopenia The patient is advised to take calcium with vitamin D for osteopenia management. Orders: Orders Vitamin D 25-OH Total Today E55.9 - Vitamin D deficiency, unspecified Thyroid Stimulating Hormone 6 Months E03.9 - Hypothyroidism, unspecified Lipid Panel 6 Months E78.5 - Hyperlipidemia, unspecified, I25.10 - Atherosclerotic heart disease of [place] coronary artery without angina pectoris Comprehensive [place]. Panel Fast 6 Months I25.10 - Atherosclerotic heart disease of [place] coronary artery without angina pectoris Thyroid Stimulating Hormone Today E03.9 - Hypothyroidism, unspecified Medications: New calcium acetate 667 mg PO BID 180 tabs 3RF 90 days M85.80 - Other specified disorders of bone density and structure, unspecified site
== END 2024-12-18 08:27 | disposition home or self-care (01) ==
LOC: HO.HMCH 07:57
PROVIDERS: PCP Family Medicine; Visit Provider Internal Medicine
DX: I10 Essential (primary) hypertension (principal); J44.9 Chronic obstructive pulmonary disease, unspecified; I25.10 Atherosclerotic heart disease of native coronary artery without angina pectoris; E03.9 Hypothyroidism, unspecified; M85.80 Other specified disorders of bone density and structure, unspecified site; G60.9 Hereditary and idiopathic neuropathy, unspecified

== ENCOUNTER → 2024-12-18 07:56 | Outpatient (BNVA) | payer MEDICARE, SELFPAY ==
[2021-11-16 08:17] VITALS: BMI 45.8
== END ==
PROVIDERS: PCP Family Medicine; Visit Provider Internal Medicine
DX: I25.10 Atherosclerotic heart disease of native coronary artery without angina pectoris (principal); J44.9 Chronic obstructive pulmonary disease, unspecified; E55.9 Vitamin D deficiency, unspecified; M85.80 Other specified disorders of bone density and structure, unspecified site; I10 Essential (primary) hypertension; E03.9 Hypothyroidism, unspecified; G60.9 Hereditary and idiopathic neuropathy, unspecified
CPT/HCPCS: 99212